=== PATIENT | male | born 1965 | race Caucasian/White ===

== ENCOUNTER 2019-10-01 22:07 | Emergency (ER) | payer OTHER, SELFPAY ==
--- NOTE | ~2019-10-01 | CT_ITS ---
EXAMINATION: CT abdomen pelvis w con DATE: 10/01/2019 22:55 INDICATION: Right upper quadrant abdominal pain TECHNIQUE: Computed tomography (CT) of the abdomen and pelvis was performed without intravenous contr ast. Automated exposure control and iterative reconstruction technique were employed. Exam dose: 149 7.68 mGy-cm total exam DLP. COMPARISON: None. FINDINGS: Cardiomegaly. No pericardial or pleural effusion. The lung bases are clear of infiltrate or consolidation. The gallbladder is present. Gallstones are not definitively excluded; consider gallbladder ultrasound as clinically appropriate. Hepatic steatosis. No hepatic, splenic or pancreatic or right adrenal space-occupying mass lesion is evident. There is approximately 1.5 cm left adrenal mass. No renal mass lesion or urinary tract calculus or hydroureteronephrosis is evident. The urinary bladd er, seminal vesicles and prostate gland are unremarkable. There is mild patchy increased density of the mesenteric fat and shotty nonenlarged mesenteric lymph nodes. There is mild colonic diverticulosis; no CT evidence of diverticulitis. No bowel obstruction or intra peritoneal free air. Diffuse idiopathic skeletal hyperostosis of the lower thoracic and upper lumbar spine. IMPRESSION: Cardiomegaly Hepatic steatosis 1.5 cm left adrenal mass Gallstones are not definitively excluded on this examination; consider gallbladder ultrasound as clin ically appropriate Diverticulosis of the colon; no CT evidence of diverticulitis. Reviewed, dictated and finalized at [facility]. Reviewed, dictated and finalized at location [facility]. S ANALYST IMPRESSION: Cardiomegaly Hepatic steatosis 1.5 cm left adrenal mass Gallstones are not definitively excluded on this examination; consider gallblad bg ultrasound as clinically appropriate Diverticulosis of the colon; no CT evidence of diverticulitis.
[2019-10-01 22:08] VITALS: BP 174/105; PULSE 74; RESP 20; TEMP 36.2; O2SAT 98
--- NOTE | 2019-10-01 22:14 | ED.ABDPAIN ---
HPI - Abdominal Pain General Chief Complaint: Abdominal Pain Stated Complaint: abd pain Time Seen by Provider: 10/01/19 22:12 Source: patient and RN notes reviewed Mode of arrival: other Limitations: no limitations History of Present Illness HPI narrative: Pt is a 54 y/o male who presents to the ED with c/o RUQ ABD pain that radiates to his back that began at 9 PM after driving home from a show. Pt states that he had a rib-eye for dinner. Pt took a hydrocodone at 9:30 PM, but with no relief of his sx. Pt denies any alleviating factors. Pt also reports nausea, but denies vomiting, diarrhea, and a fever. MD elicited complaint: abdominal pain Onset (ago): hour(s) Pain Consistency: constant Location: RUQ Relieving factors: nothing Associated symptoms: nausea Treatments prior to arrival: other (Hydrocodone) Related Data Home Medications Medication Instructions Recorded Confirmed aspirin 81 mg tablet,delayed 81 mg PO DAILY 07/10/19 08/22/19 release cetirizine 10 mg tablet 10 mg PO DAILY 08/22/19 08/22/19 Allergies Allergy/AdvReac Type Severity Reaction Status Date / Time No Known Allergies Allergy Uncoded 06/09/19 09:32 Review of Systems Review of Systems: All systems reviewed & are unremarkable except as noted in HPI and below Constitutional: Constitutional: Denies fever(s) Gastrointestinal: Gastrointestinal: Reports abdominal pain (RUQ), Denies diarrhea, Reports nausea and Denies vomiting PMFSH Past Medical History Medical History (Updated 10/02/19 @ 00:28 by Sherif Brock MD) Norman's palsy Controlled diabetes mellitus, without long-term current use of insulin Coronary artery disease without angina pectoris Encounter for prostate cancer screening Encounter for wellness examination in adult Essential (primary) hypertension Mixed hyperlipidemia Morbid obesity with BMI of 50.0-59.9, adult ESTHER on CPAP Right carpal tunnel syndrome Seasonal allergic rhinitis Surgical History Surgical History (Updated 10/01/19 @ 22:30 by Rosalie Smith) History of carpal tunnel release Hx of appendectomy Family History Family History (Updated 08/08/18 @ 09:39 by DOCTOR UNKNOWN) Other Depression Diabetes mellitus Family history of coronary artery disease Family history of malignant neoplasm of brain Hypertension Social History Social History Smoking status: Never smoker Alcohol intake: current Gender identity (if verbalized by the patient): Male Exam Narrative: Exam Narrative: GENERAL: Uncomfortable appearing, morbidly obese, in moderate distress. HEAD: Normocephalic, atraumatic. ENT: Mucous membranes moist. CHEST: Clear to auscultation. No respiratory distress. HEART: Tachycardic and regular. Normal peripheral pulses. ABDOMEN: Soft, tender to palpation right upper quadrant with guarding, morbidly obese. EXTREMITIES: Normal range of motion. No edema. SKIN: Warm, dry, no rash. NEURO: Alert and oriented x3. PSYCH: Normal mood and affect. Course Course Emergency Course: Pain resolved with morphine. Informed of results. Patient reports being told he had gallbladder sludge on ultrasound in [place] a while ago. Recommend follow-up with PCP for repeat ultrasound. May require referral to general surgery for cholecystectomy. Vital Signs Vital signs: Vital Signs Temperature 97.2 F L 10/01/19 22:08 Pulse Rate 74 10/01/19 22:08 Respiratory Rate 20 10/01/19 22:08 Blood Pressure 174/105 H 10/01/19 22:08 Pulse Oximetry 98 10/01/19 22:08 Temperature 97.2 F L 10/01/19 22:08 Pulse Rate 73 10/01/19 23:26 Respiratory Rate 18 10/01/19 23:26 Blood Pressure 167/79 H 10/01/19 23:26 Pulse Oximetry 95 10/01/19 23:26 MDM - Abdominal Pain Lab Data Result diagrams: 10/01/19 22:34 10/01/19 22:51 Labs: Lab Results 10/01/19 10/01/19 10/01/19 Range/Units 22:34 22:35 22:51 WBC 10.7 H (4.5-10.0) K/mm3 RBC 4.98 (4.6-6.20)
[2019-10-01] MEDS: SODIUM CHLORIDE 0.9% IV 1,000 ML 999 ML IV CONT (22:39)
[2019-10-01] MEDS: MORPHINE SULFATE 4 MG/ML INJ IV PUSH (22:39)
[2019-10-01] MEDS: ONDANSETRON INJ 4 MG/2 ML VIAL IV PUSH (22:39)
[2019-10-01 22:40] LABS: Basophils Percent Auto 0.4 % (0.2-1.2); Eosinophils Absolute Auto 0.2 K/mm3 (0-0.3); Eosinophils Percent Auto 1.6 % (0-4.4); Immature Granulocyte Absolute 0.04 K/mm3 (0.00-0.031); Immature Granulocyte Percent A 0.4 % (0-0.5); Lymphocytes Absolute Auto 3.06 K/mm3 (0.9-3.2); Lymphocytes Percent Auto 28.5 % (18.3-44.2); Mean Corpuscular HGB Conc 33.3 g/dl (32-36); Mean Corpuscular Hemoglobin 30.1 pg (26-34); Mean Corpuscular Volume 90.4 fl (80-100); Mean Platelet Volume 11.1 fl (7.4-10.4); Monocytes Absolute Auto 0.6 K/mm3 (0.1-0.6); Monocytes Percent Auto 5.2 % (2.6-8.5); Neutrophils Absolute Auto 6.9 K/mm3 (1.3-6.7); Neutrophils Percent Auto 63.9 % (45.5-73.1); Platelet Count Result 182 k/mm3 (150-375); Red Blood Count 4.98 M/mm3 (4.6-6.20); Red Cell Distribution Width 13.6 % (11.5-14.5); White Blood Count 10.7 K/mm3 (4.5-10.0)
[2019-10-01 22:53] LABS: Alanine Aminotransferase 36 U/L (4-50); Albumin Level 4.5 g/dL (3.5-5.1); Alkaline Phosphatase 78 U/L (38-126); Aspartate Amino Transferase 26 U/L (17-59); Bilirubin,Total 0.6 mg/dL (0.2-1.3); Blood Urea Nitrogen 18 mg/dL (9-20); Calcium 9.3 mg/dL (8.4-10.2); Carbon Dioxide 28 mmol/L (22-30); Chloride 97 mmol/L (98-107); Estimated Glomerular Filt Rate > 60; Glucose 120 mg/dL (75-110); Lipase 91 U/L (23-300); Sodium 140 mmol/L (137-145)
[2019-10-01 22:53] LABS: Blood Urea Nitrogen 18 mg/dL (8-26); Estimated Glomerular Filt Rate > 60
[2019-10-01 23:26] VITALS: BP 167/79; PULSE 73; RESP 18; O2SAT 95
[2019-10-02 00:34] VITALS: BP 151/65; PULSE 77; RESP 16; O2SAT 95
[2019-10-02 00:49] VITALS: BP 155/69; PULSE 70; RESP 16; TEMP 36.8; O2SAT 99
== END 2019-10-02 00:51 | disposition home or self-care (01) ==
PROVIDERS: Emergency Provider Emergency Medicine; PCP Family Medicine
DX: K80.50 Calculus of bile duct without cholangitis or cholecystitis without obstruction (principal); E11.9 Type 2 diabetes mellitus without complications; I25.10 Atherosclerotic heart disease of native coronary artery without angina pectoris; I10 Essential (primary) hypertension; E78.2 Mixed hyperlipidemia; E66.9 Obesity, unspecified; Z68.43 Body mass index [BMI] 50.0-59.9, adult; Z79.82 Long term (current) use of aspirin; E27.8 Other specified disorders of adrenal gland; K57.90 Diverticulosis of intestine, part unspecified, without perforation or abscess without bleeding
CPT/HCPCS: 36415; 74177; 80053; 83690; 85025; 96361; 96374; 96375; 99284; J2270; J2405; J7030; Q9967

== ENCOUNTER 2019-10-05 07:41 | Outpatient (CLI) | payer OTHER, SELFPAY ==
--- NOTE | ~2019-10-05 | NM_ITS ---
EXAMINATION: NM hepatobiliary w pharm EXAM DATE: 10/05/2019 10:06 INDICATION: Right upper quadrant abdominal pain. TECHNIQUE: 5 mCi Tc-99m mebrofenin (Choletec) was administered intravenously. Scintigraphic images o f the abdomen were obtained for one hour. At the 1 hour time point, 3.0 mcg sincalide (Kinevac) was a dministered by slow intravenous infusion, and imaging was continued for 30 minutes. Gallbladder eject ion fraction was calculated by the technologist. Correlation is made to CT abdomen pelvis 10/01/2019. FINDINGS: There is normal clearance of radiotracer from the blood pool. There is homogeneous tracer u ptake by the liver. Activity progresses to the gallbladder and bowel. The gallbladder ejection fract ion (GBEF) is 44 % (most patients with gallbladder dysfunction have GBEF < 35%, but there is overlap with the normal range of 10-90%). IMPRESSION: Gallbladder ejection fraction 44%, within normal range. Reviewed, dictated and finalized at location [facility]. PULLER
== END 2019-10-05 07:42 | disposition home or self-care (01) ==
PROVIDERS: PCP Family Medicine; Visit Provider Family Medicine
DX: K80.50 Calculus of bile duct without cholangitis or cholecystitis without obstruction (principal)
CPT/HCPCS: 78227; A9537; J2805

== ENCOUNTER 2020-04-06 22:16 | Emergency (ER) | payer OTHER, SELFPAY ==
[2020-04-06 22:19] VITALS: BP 195/98; PULSE 61; RESP 20; TEMP 36.5; O2SAT 100
[2020-04-06 22:40] LABS: Basophils Absolute Auto 0.1 K/mm3 (0.0-0.1); Basophils Percent Auto 0.5 % (0.2-1.2); Eosinophils Absolute Auto 0.2 K/mm3 (0-0.3); Eosinophils Percent Auto 2.2 % (0-4.4); Hemoglobin 15.3 g/dL (14.0-18.0); Immature Granulocyte Absolute 0.04 K/mm3 (0.00-0.031); Immature Granulocyte Percent A 0.4 % (0-0.5); Lymphocytes Absolute Auto 3.23 K/mm3 (0.9-3.2); Lymphocytes Percent Auto 31.7 % (18.3-44.2); Mean Corpuscular Hemoglobin 30.5 pg (26-34); Mean Corpuscular Volume 89.8 fl (80-100); Mean Platelet Volume 10.7 fl (7.4-10.4); Monocytes Absolute Auto 0.5 K/mm3 (0.1-0.6); Monocytes Percent Auto 4.9 % (2.6-8.5); Neutrophils Absolute Auto 6.1 K/mm3 (1.3-6.7); Neutrophils Percent Auto 60.3 % (45.5-73.1); Platelet Count Result 172 k/mm3 (150-375); Red Blood Count 5.01 M/mm3 (4.6-6.20); Red Cell Distribution Width 13.3 % (11.5-14.5); White Blood Count 10.2 K/mm3 (4.5-10.0)
[2020-04-06 22:51] LABS: Add Urine Microscopic? NO; Appearance Urine Clear (Clear); Bilirubin Urine Negative (Negative); Blood Urine Negative (Negative); Color Urine Yellow (Yellow); Glucose Urine UA Negative (Negative); Ketones Urine Negative (Negative); Leukocyte Esterase Ur Negative LEU/UL (Negative); Nitrate Urine Negative (Negative); Protein Urine Negative (Negative); Specific Grav Ur 1.026 (1.001-1.035); Urobilinogen Urine Negative mg/dL (<2.0)
[2020-04-06 22:56] LABS: Alanine Aminotransferase 55 U/L (4-50); Albumin Level 4.5 g/dL (3.5-5.1); Alkaline Phosphatase 63 U/L (38-126); Anion Gap 8 mmol/L (8-16); Aspartate Amino Transferase 37 U/L (17-59); Bilirubin,Total 0.4 mg/dL (0.2-1.3); Blood Urea Nitrogen 16 mg/dL (9-20); Calcium 8.7 mg/dL (8.4-10.2); Carbon Dioxide 28 mmol/L (22-30); Chloride 104 mmol/L (98-107); Estimated Glomerular Filt Rate > 60; Glucose 108 mg/dL (75-110); Lipase 122 U/L (23-300); Potassium 4.1 mmol/L (3.4-5.0); Sodium 140 mmol/L (137-145)
[2020-04-06] MEDS: MORPHINE SULFATE 4 MG/ML INJ IV PUSH (23:19)
[2020-04-06] MEDS: PROMETHAZINE HCL 25 MG/ML AMPUL 12.5 MG IV PUSH (23:20)
[2020-04-07 00:25] VITALS: BP 180/96; PULSE 59; RESP 20; TEMP 36.7; O2SAT 99
--- NOTE | 2020-04-07 00:42 | ED.ABDPAIN ---
HPI - Abdominal Pain General Chief Complaint: Abdominal Pain Stated Complaint: R ABD PAIN Time Seen by Provider: 04/06/20 22:39 History of Present Illness HPI narrative: Patient is a 55-year-old male who presents ER with right upper quadrant abdominal pain. Radiates around his back. Has history of gallbladder sludge with occasional biliary colic. This feels like the same symptoms he has had in the past. Occurred after eating some apple cider doughnuts. No fevers or chills. He is having some sweats as well as nausea and vomiting. No alleviating factors. Related Data Home Medications Medication Instructions Recorded Confirmed aspirin 81 mg tablet,delayed 81 mg PO DAILY 07/10/19 08/22/19 release cetirizine 10 mg tablet 10 mg PO DAILY 08/22/19 08/22/19 Allergies Allergy/AdvReac Type Severity Reaction Status Date / Time No Known Allergies Allergy Verified 04/06/20 22:21 Review of Systems Review of Systems: All systems reviewed & are unremarkable except as noted in HPI and below Constitutional: Constitutional: Denies chills, Denies fever(s) and Denies weakness ENT: Denies nasal congestion and Denies sore throat Cardiovascular: Cardiovascular: Denies chest pain and Denies rapid heart rate Respiratory: Respiratory: Denies cough and Denies dyspnea Gastrointestinal: Gastrointestinal: Reports abdominal pain, Denies diarrhea, Reports nausea and Reports vomiting PMFSH Past Medical History Medical History (Updated 04/07/20 @ 01:24 by Sherif Brock MD) Norman's palsy Biliary colic Controlled diabetes mellitus, without long-term current use of insulin Coronary artery disease without angina pectoris Cough Encounter for prostate cancer screening Encounter for wellness examination in adult Essential (primary) hypertension Fever Mixed hyperlipidemia Morbid obesity with BMI of 50.0-59.9, adult ESTHER on CPAP Right carpal tunnel syndrome Seasonal allergic rhinitis Shortness of breath Surgical History Surgical History (Updated 10/01/19 @ 22:30 by Rosalie Smith) History of carpal tunnel release Hx of appendectomy Family History Family History (Updated 08/08/18 @ 09:39 by DOCTOR UNKNOWN) Other Depression Diabetes mellitus Family history of coronary artery disease Family history of malignant neoplasm of brain Hypertension Social History Social History Smoking status: Never smoker Alcohol intake: current Gender identity (if verbalized by the patient): Male Exam Narrative: Exam Narrative: GENERAL: Well-appearing, obese, and in no acute distress. HEAD: Normocephalic, atraumatic. ENT: Mucous membranes moist. CHEST: Clear to auscultation. No respiratory distress. HEART: Regular rate and rhythm. Normal peripheral pulses. ABDOMEN: Soft, TTP RUQ w/o guarding, nondistended EXTREMITIES: Normal range of motion. No edema. SKIN: Warm, sweating, no rash. NEURO: Alert and oriented x3. Course Course Emergency Course: Pain resolved with morphine. Resting comfortably. Discharge home. Vital Signs Vital signs: Vital Signs Temperature 97.7 F 04/06/20 22:19 Pulse Rate 61 04/06/20 22:19 Respiratory Rate 20 04/06/20 22:19 Blood Pressure 195/98 H 04/06/20 22:19 Pulse Oximetry 100 04/06/20 22:19 Temperature 98.1 F 04/07/20 00:25 Pulse Rate 59 L 04/07/20 00:25 Respiratory Rate 20 04/07/20 00:25 Blood Pressure 180/96 H 04/07/20 00:25 Pulse Oximetry 99 04/07/20 00:25 MDM - Abdominal Pain Lab Data Result diagrams: 04/06/20 22:35 04/06/20 22:35 Labs: Lab Results 04/06/20 04/06/20 04/06/20 Range/Units 22:35 22:35 22:43 WBC 10.2 H (4.5-10.0) K/mm3 RBC 5.01 (4.6-6.20) M/mm3 Hgb 15.3 (14.0-18.0) g/dL Hct 45.0 (42.0-52.0) % MCV 89.8 (80-100) fl MCH 30.5 (26-34) pg MCHC 34.0 (32-36) g/dl RDW 13.3 (11.5-14.5) % Plt Count 172 (150-375) k/mm3 MPV 10.7 H (7.4-10.4) fl Immat
[2020-04-07 01:33] VITALS: BP 144/83; PULSE 73; RESP 18; O2SAT 98
== END 2020-04-07 01:35 | disposition home or self-care (01) ==
PROVIDERS: Emergency Provider Emergency Medicine; PCP Family Medicine
DX: K80.50 Calculus of bile duct without cholangitis or cholecystitis without obstruction (principal); Z79.82 Long term (current) use of aspirin; E11.9 Type 2 diabetes mellitus without complications; I25.10 Atherosclerotic heart disease of native coronary artery without angina pectoris; I10 Essential (primary) hypertension; E78.2 Mixed hyperlipidemia; E66.01 Morbid (severe) obesity due to excess calories; Z68.43 Body mass index [BMI] 50.0-59.9, adult; G47.33 Obstructive sleep apnea (adult) (pediatric)
CPT/HCPCS: 36415; 80053; 81003; 83690; 85025; 96374; 96375; 99284; J2270; J2550

== ENCOUNTER 2021-02-07 00:23 | Observation (INO) | payer OTHER, SELFPAY ==
[2021-02-07] VITALS (16 sets, daily range): BP systolic 108–188; BP diastolic 46–111; PULSE 58–85; RESP 18–22; TEMP 36–36.9; O2SAT 91–97; BMI 51.5
--- NOTE | 2021-02-07 | ECHO_ITS ---
Patient Info Name: Santos Grider Age: 56 years : 1965 Gender: Male Ht: 66 in Wt: 319 lbs BSA: 2.68 m2 HR: 72 bpm BP: 119 / 57 mmHg Heart Rhythm: Sinus Rhythm Technical Quality: Good Exam Date: 02/07/2021 10:05 AM Exam Location: [facility] Pulmonary Patient Status: Outpatient Admit Date: 02/07/2021 Staff Ordering Physician: Herminio Fierro MD Electric Organ Inspector And Repairer: Clint Vance, CRYSTAL, RT Attending Provider: Trevor Rossi MD Referring Physician: Sri LANG; Exam Type: CA echo doppler color flow Study Info Indications I11.0 - Hypertensive heart disease with heart failure Complete two-dimensional, color flow and Doppler transthoracic echocardiogram is performed. Strain analysis performed. Summary 1. Complete two-dimensional, color flow and Doppler transthoracic echocardiogram is performed. 2. Normal left ventricular size thickness and systolic function. 3. Grade 1 diastolic noncompliance. 4. Otherwise unremarkable echocardiogram. Left Ventricle Left ventricular chamber dimension is normal. Left ventricular systolic function is normal, estimated at 55-60%. The left ventricular diastolic function is grade I diastolic dysfunction. Right Ventricle Right ventricular chamber dimension is normal. Left Atria Left atrial chamber dimension is normal. Right Atria Right atrial chamber dimension is normal. Aortic Valve The aortic valve is normal. Pulmonic Valve The pulmonic valve is normal. Mitral Valve The mitral valve has normal leaflets. There is no mitral valve regurgitation. Tricuspid Valve The tricuspid valve leaflets are normal. Pericardium/Pleural The pericardium appears normal. Aorta The aortic root size at the sinus of Valsalva is normal. Left Ventricular Outflow Tract Name Value Normal LVOT 2D LVOT Diameter 2.0 cm LVOT Doppler LVOT Peak Gradient 5 mmHg LVOT Mean Gradient 3 mmHg LVOT VTI 22 cm LVOT VTI/AV VTI Ratio 0.7 LVOT Stroke Volume 67 ml LVOT CO 4.9 l/min LVOT CI 1.8 l/min/m2 Mitral Valve Name Value Normal MV Doppler MV Decel [place] 319 cm/s2 MV PHT 72 ms MV Area (PHT) 3.1 cm2 4.0-5.0 MV Diastolic Function MV E Peak Velocity 79 cm/s MV A Peak Velocity 88 cm/s MV E/A 0.9 MV Decel Time 248 ms MV Annular TDI MV E/
--- NOTE | ~2021-02-07 | XR_ITS ---
XR chest 1V portable 02/07/2021 00:59 Indication: Respiratory failure Procedure: AP portable chest Comparison: 05/12/2019 Findings: Cardiomegaly with mild interstitial edema. No pleural effusion or pneumothorax. No acute os seous abnormality. Impression: 1: Cardiomegaly with mild interstitial edema. Pneumonia less favored. Reviewed, dictated and finalized at location B. Impression: 1: Cardiomegaly with mild interstitial edema. Pneumonia less favored.
--- NOTE | 2021-02-07 00:27 | ECG_ITS ---
Measurements Intervals [place] Rate: 67 P: 1 W[place]: 153 QRS: -10 QRSD: 105 T: -10 QT: 404 QTc: 427 Interpretive Statements SINUS RHYTHM DELAYED PRECORDIAL R/S TRANSITION VOLTAGE CRITERIA FOR LVH BORDERLINE T WAVE ABNORMALITY- INFERIOR LEADS BASELINE ARTIFACT- I, III, AVL, V1 BORDERLINE ECG Electronically Signed On 02-07-2021 7:42:12 CDT by Max Garcia D.O.
--- NOTE | 2021-02-07 00:34 | ED.SOB ---
HPI - SOB/Dyspnea General Chief Complaint: Shortness of Breath/Dyspnea Stated Complaint: sob, coughing up blood since 1130 Time Seen by Provider: 02/07/21 00:27 History of Present Illness HPI Narrative: 56 yo male w/ h/o htn, DM presents to the ED for SOB. He reports that around 11:30 PM yesterday he started coughing up pink frothy stuff and he has had progressive SOB since that time. No chest pain. He has never had this happen before. Related Data Home Medications Medication Instructions Recorded Confirmed aspirin 81 mg tablet,delayed 81 mg PO DAILY 07/10/19 02/07/21 release cetirizine 10 mg tablet 10 mg PO DAILY 12/17/20 02/07/21 Allergies Allergy/AdvReac Type Severity Reaction Status Date / Time No Known Allergies Allergy Verified 02/07/21 03:20 Review of Systems Review of Systems: All systems reviewed & are unremarkable except as noted in HPI and below Constitutional: Constitutional: Denies chills and Denies fever(s) ENT: Denies sore throat Cardiovascular: Cardiovascular: Denies chest pain Respiratory: Respiratory: Reports cough and Reports dyspnea Gastrointestinal: Gastrointestinal: Denies abdominal pain and Denies nausea Neurologic: Denies dizziness and Denies weakness PMFSH Past Medical History Medical History Norman's palsy Biliary colic Controlled diabetes mellitus, without long-term current use of insulin Coronary artery disease without angina pectoris Cough Encounter for prostate cancer screening Encounter for wellness examination in adult Essential (primary) hypertension Fever Mixed hyperlipidemia Morbid obesity with BMI of 50.0-59.9, adult ESTHER on CPAP Right carpal tunnel syndrome Seasonal allergic rhinitis Shortness of breath Surgical History Surgical History History of carpal tunnel release History of cholecystectomy (~2019) Hx of appendectomy Family History Family History Daughter Depression Father Family history of coronary artery disease Hypertension Acute myocardial infarction Cerebrovascular accident Social History Social History Smoking status: Never smoker Alcohol intake: current Drinks per week: 7 Substance use: never Gender identity (if verbalized by the patient): Male Spiritual care concerns: No Exam Const: General: alert and ill appearing Nutritional Appearance: obese morbidly obese Orientation/consciousness: patient oriented x3 HENMT: Head: normal to inspection Neck: Neck: normal visual inspection Chest: Chest palpation & inspection: normal inspection of the chest Resp: Effort & Inspection: tachypneic Auscultation: crackles Cardio: Rate: tachycardic Rhythm: regular rhythm GI: GI Palp: Yes Soft to palpation and No Tenderness to palpation present (GI) Skin: General skin exam: normal color Neuro: General: patient oriented x3, moves all extremities, no focal motor deficits and CN's II-XI intact bilaterally Speech: normal speech Extrem: General: normal to inspection Course Vital Signs Vital signs: Vital Signs Pulse Rate 78 02/07/21 00:20 Respiratory Rate 22 H 02/07/21 00:20 Blood Pressure 188/111 H 02/07/21 00:20 Pulse Oximetry 96 02/07/21 00:20 Temperature 36.9 C 02/07/21 03:20 Pulse Rate 72 02/07/21 03:20 Respiratory Rate 18 02/07/21 03:20 Blood Pressure 119/57 L 02/07/21 03:20 Pulse Oximetry 94 02/07/21 03:44 MDM - SOB/Dyspnea MDM Narrative Medical decision making narrative: He appears to have developed flash pulmonary edema Differential Diagnosis Differential diagnosis: Likely congestive heart failure and community acquired pneumonia Medical Records Attestation: I reviewed the patient's medical records. Lab Data Attestation: I reviewed the patient's lab
[2021-02-07] MEDS: LABETALOL HCL INJ 100 MG/20 ML VIAL 20 MG IV PUSH (00:39)
[2021-02-07] MEDS: FUROSEMIDE INJ 40 MG/4 ML VIAL IV PUSH ×3 (00:40→20:11)
[2021-02-07] MEDS: NITROGLYCERIN OINTMENT 1 INCH DOSE TRANSDERM ×5 (00:41→23:58)
[2021-02-07 01:05] LABS: Basophils Percent Auto 0.2 % (0.2-1.2); Eosinophils Absolute Auto 0.2 K/mm3 (0-0.3); Eosinophils Percent Auto 2.1 % (0-4.4); Hematocrit 42.1 % (42.0-52.0); Hemoglobin 14.1 g/dL (14.0-18.0); Immature Granulocyte Absolute 0.04 K/mm3 (0.00-0.031); Immature Granulocyte Percent A 0.5 % (0-0.5); Immature Platelet Fraction Pct 4.3 % (0.9-11.2); Lymphocytes Percent Auto 24.8 % (18.3-44.2); Mean Corpuscular HGB Conc 33.5 g/dl (32-36); Mean Corpuscular Hemoglobin 30.5 pg (26-34); Mean Corpuscular Volume 90.9 fl (80-100); Mean Platelet Volume 10.8 fl (7.4-10.4); Monocytes Absolute Auto 0.4 K/mm3 (0.1-0.6); Monocytes Percent Auto 4.4 % (2.6-8.5); Platelet Count Result 148 k/mm3 (150-375); Red Blood Count 4.63 M/mm3 (4.6-6.20); Red Cell Distribution Width 13.9 % (11.5-14.5); White Blood Count 8.9 K/mm3 (4.5-10.0)
[2021-02-07 01:12] LABS: Anion Gap 7 mmol/L (8-16); Blood Urea Nitrogen 21 mg/dL (9-20); Calcium 8.5 mg/dL (8.4-10.2); Carbon Dioxide 26 mmol/L (22-30); Chloride 108 mmol/L (98-107); Estimated CRCL calculation 125 ml/min; Estimated Glomerular Filt Rate > 60; Glucose 120 mg/dL (75-110); INR 0.9; Potassium 3.6 mmol/L (3.4-5.0); Prothrombin Time 12.9 Seconds (11.1-14.7); Sodium 141 mmol/L (137-145)
[2021-02-07 01:13] LABS: Partial Thromboplastin Time 26.6 SECONDS (22.3-36.8)
[2021-02-07 01:24] LABS: NT Pro B Type Natriuretic Pept 204 pg/mL (5-100); Troponin I < 0.012 ng/mL (0.000-0.034)
--- NOTE | 2021-02-07 03:00 | PM.IMHP ---
H&P: HPI History of Present Illness Date/Time: 02/07/21 03:00 Chief Complaint: shortness of breath Narrative: This is a 56-year-old male with past medical history significant for morbid obesity, dyslipidemia, hypertension. PATIENT PRESENTED TO THE EMERGENCY ROOM DUE TO SHORTNESS OF BREATH IS STATES THAT A CAME ALL OF A SUDDEN ON HIM WHILE HE WAS JUST LAYING IN BED AND GETTING READY TO GO TO SLEEP FELT THAT HE WAS HARD TO CATCH HIS BREATH. PATIENT DENIES ANY CHEST PAIN HE HAD COUGH WITH PRODUCTIVE FOAMY PINK SPUTUM NO DIZZINESS NO NEAR SYNCOPE NO SYNCOPE NO PND NO ORTHOPNEA NO LEG SWELLING HE HAS BEEN IN HIS USUAL STATE OF HEALTH UP UNTIL THIS EPISODE, NO ABDOMINAL NO FEVERS NO RIGORS NO CHILLS. PRELIMINARY WORKUP WAS SIGNIFICANT FOR CHEST X-RAY WITH PULMONARY EDEMA AND ELEVATED BLOOD PRESSURE AT THE TIME OF MY VISIT PATIENT DENIED ANY DISCOMFORT AND STATED THAT HE WAS FEELING MUCH BETTER HE RECEIVED LASIX, LABETALOL AND NITRO PATCH. DECISION HAS BEEN MADE TO PLACE THE PATIENT IN OBSERVATION FOR FURTHER MANAGEMENT AND EVALUATION. Review of Systems Review of Systems: Narrative: SHORTNESS OF BREATH Constitutional: Constitutional: Denies chills, Denies fatigue, Denies fever(s), Denies lethargy, Denies night sweats and Denies weakness Eyes: Eyes: Denies change in vision and Denies diplopia ENT: Denies nasal congestion, Denies nasal discharge and Denies nasal obstruction Cardiovascular: Cardiovascular: Denies chest pain, Denies irregular heart rhythm, Denies leg edema, Denies lightheadedness, Denies radiating jaw, neck or arm pain, Denies palpitations, Denies dyspnea on exertion, Reports orthopnea and Denies paroxysmal nocturnal dyspnea Respiratory: Respiratory: Reports cough and Reports excessive phlegm production Comments: FOAMY PINKISH SPUTUM Gastrointestinal: Gastrointestinal: Denies abdominal pain, Denies dyspepsia, Denies nausea and Denies vomiting Genitourinary: Genitourinary: Reports no additional male genitourinary complaints Musculoskeletal: Musculoskeletal: Reports no additional musculoskeletal complaints Integumentary/Breasts: Skin/Breast: Reports system reviewed and no additional complaints, except as docu Neurologic: Reports system reviewed and no additional complaints, except as documented Psychiatric: Psychiatric: Reports no additional psychiatric complaints Endocrine: Endocrine: Reports no additional endocrine complaints Hematologic/Lymphatic: Hematologic/Lymphatic: Reports no additional hematologic/lymphatic complaints Allergic/Immunologic: Allergic/Immunologic: Reports no additional allergic/immunologic complaints [facility] Past Medical History Medical History (Updated 02/07/21 @ 03:12 by Herminio Fierro MD) Norman's palsy Biliary colic Controlled diabetes mellitus, without long-term current use of insulin Coronary artery disease without angina pectoris Cough Encounter for prostate cancer screening Encounter for wellness examination in adult Essential (primary) hypertension Fever Mixed hyperlipidemia Morbid obesity with BMI of 50.0-59.9, adult ESTHER on CPAP Right carpal tunnel syndrome Seasonal allergic rhinitis Shortness of breath Surgical History Surgical History (Updated 06/18/20 @ 13:56 by Estefany Adkins MA) History of carpal tunnel release History of cholecystectomy (~2019) Hx of appendectomy Family History Family History (Updated 08/08/18 @ 09:39 by DOCTOR UNKNOWN) Other Depression Diabetes mellitus Family history of coronary artery disease Family history of malignant neoplasm of brain Hypertension Social History Social History Smoking status: Never smoker Alcohol intake: current Gender identity (if verbalized by the patient): Male Meds Home Medications and Allergies Home Medications Medication Instructions Recorded Confirmed Type aspirin 81 mg tablet,delayed 81 mg PO DAILY 07/10/19 12/17/20 Histor
--- NOTE | 2021-02-07 03:18 | PC.NURSE ---
This patient, Santos Grider, was admitted to IMU Room 207-01 on 02/07/21 at 0310. Patient/family oriented to hospital policies and general routines including ID bracelet, bed and alarms, visiting hours, pain management, procedures, bathroom and other care routines, personal items, smoking policy, room service/diet, and visiting hours. Information on how to activate the Rapid Response Team has been discussed. Patient/Family are encouraged to report perceived risks to care and to ask questions if they do not understand what they are told or what they should do.
[2021-02-07] MEDS: lisinopriL 20 MG TABLET 40 MG PO (08:25)
[2021-02-07] MEDS: METOPROLOL SUCCINATE EXT REL 50 MG TABCR PO (08:25)
[2021-02-07 08:45] LABS: Glucose Point of Care 130 mg/dl (65-105)
--- NOTE | 2021-02-07 10:52 | PM.IMPN ---
Progress Note: A&P Assessment and Plan (1) Hypertensive emergency: Code(s): I16.1 - Hypertensive emergency Status: Acute Assessment and Plan: PLACE IN OBSERVATION IN TELEMETRY UNIT RESTART HOME MEDS HYDRALAZINE IV P.R.N. ECHOCARDIOGRAM IN A.M. SUPPORTIVE CARE CONTINUE TO MONITOR Consult cardiology (2) Acute cardiogenic pulmonary edema: Code(s): I50.1 - Left ventricular failure, unspecified Status: Acute Assessment and Plan: Improving gradually (3) Morbid obesity with BMI of 50.0-59.9, adult: Code(s): E66.01 - Morbid (severe) obesity due to excess calories; Z68.43 - Body mass index [BMI] 50.0-59.9, adult Status: Acute Assessment and Plan: LIFESTYLE AND DIET MODIFICATIONS (4) Controlled diabetes mellitus, without long-term current use of insulin: Code(s): E11.9 - Type 2 diabetes mellitus without complications Status: Acute Assessment and Plan: CARB CONSISTENT DIET (5) ESTHER on CPAP: Code(s): G47.33 - Obstructive sleep apnea (adult) (pediatric); Z99.89 - Dependence on other enabling machines and devices Status: Acute Assessment and Plan: CONTINUE CPAP Subjective Date/time seen: 02/07/21 10:52 Interval history: Shortness of breath and chest discomfort are much better, patient is resting comfortably no active complaints at this time. Exam Const: General: cooperative and no acute distress HENMT: Head: normal to inspection Eyes: General: appearance normal, both eyes and all related structures Neck: Neck: normal visual inspection Chest: Chest palpation & inspection: normal inspection of the chest Resp: Effort & Inspection: normal respiratory effort Cardio: Jugular venous distension: no JVD Rate: regular rate GI: Inspection: normal to inspection and non-distended Objective Data Vital Signs Vital Signs: Vital Signs - 24 hr 02/07/21 00:20 02/07/21 02:41 02/07/21 03:20 Temperature 98.4 F Pulse Rate 78 71 72 Respiratory Rate 22 H 18 18 Blood Pressure 188/111 H 134/79 119/57 L Pulse Oximetry 96 97 92 02/07/21 03:44 02/07/21 04:00 02/07/21 06:00 Temperature Pulse Rate 76 64 Respiratory Rate Blood Pressure Pulse Oximetry 94 02/07/21 08:00 02/07/21 10:00 Temperature 97.9 F Pulse Rate 70 71 Respiratory Rate 22 H Blood Pressure 125/51 L Pulse Oximetry 93 Intake/Output Intake/Output: Intake & Output 02/04/21 02/05/21 02/06/21 02/07/21 23:59 23:59 23:59 23:59 Output Total 1205 Balance -1205 Meds/Results Medications: Active Medications Generic Name Dose Route Start Last Admin Trade Name Freq PRN Reason Stop Dose Admin Furosemide 40 mg 02/07/21 09:00 02/07/21 08:25 Furosemide Inj 40 Mg/4 Ml Vial IV PUSH 40 mg Q12HR VIDA Administration Hydralazine HCl 10 mg 02/07/21 02:56 Hydralazine Hcl 20 Mg/Ml Vial IV PUSH Q8H PRN SBP > 180 Insulin Aspart 7 units 02/07/21 08:00 02/07/21 08:22 Insulin Aspart (*Bkc) 100 Units/Ml 0.05 units/kg (7 units) Not Given SUB-Q TIDWM [facility] Lisinopril 40 mg 02/07/21 09:00 02/07/21 08:25 Lisinopril 20 Mg Tablet PO 40 mg QAM VIDA Administration Metoprolol Succinate 50 mg 02/07/21 09:00 02/07/21 08:25 Metoprolol Succinate Ext Rel 50 Mg Tabcr PO 50 mg QAM VIDA Administration Nitroglycerin 1 inch 02/07/21 06:00 02/07/21 05:00 Nitroglycerin Ointment 1 Inch Dose TRANSDERM 1 inch Q6HR VIDA Administration Radiology Results: ITS Impressions Chest X-Ray 02/07/21 08:02 Impression: 1: Cardiomegaly with mild interstitial edema. Pneumonia less favored. Labs Labs: Laboratory Results - last 24 hr 02/07/21 02/07/21 02/07/21 00:54 00:54 00:54 WBC 8.9 RBC 4.63 Hgb 14.1 Hct 42.1 MCV 90.9 MCH 30.5 MCHC 33.5 RDW 13.9 Plt Count 148 L MPV 10.8 H Immature Gran % (Auto) 0.5 Neut % (Auto) 68.0 Lymph % (Auto) 24
--- NOTE | 2021-02-07 11:28 | PM.CNCAR ---
Assessment and Plan Additional Plan This is a 56-year-old man with chronic hypertension with no evidence of significant coronary disease angiographically a couple of years ago presenting with severe abrupt respiratory extremis picture of pulmonary edema and feeling much better following treatment with intravenous furosemide and oxygen as well as nitrates. I believe his high blood pressure in the emergency room was related to elevated sympathetic tone because of his respiratory extremis. He does have a systolic murmur on physical exam that is somewhat concerning for MR. He did not have any significant valvulopathy in 2019 when he was previously evaluated. At that time he also did not have any coronary artery disease to speak of. For now I would continue the IV furosemide lisinopril and metoprolol. He still has some pulmonary crackles and would probably benefit from at least another couple of doses of IV furosemide. Further recommendations will be forthcoming at review of his echocardiogram. Timbo Choudhury MD [facility] History of Present Illness History of Present Illness Consult date/time: 02/07/21 11:28 Reason For Visit: Flash pulmonary edema Narrative: This is a 56-year-old man I am seeing at the request of the hospitalist the stated reason for the consult is hypertensive emergency. Sounds like the patient presented last evening with acute severe shortness of breath with respiratory extremis and was found to be in evidence of some pulmonary edema in the emergency room. He was in his usual state of relatively good health when states he went to bed last night and shortly after laying down going to bed he started to notice some shortness of breath. His started to notice that he was doing some wheezing over the course of about just 5-10 minutes he became severely short of breath and started coughing up some blood-tinged sputum and was in severe respiratory distress. An ambulance was called he was transported to the emergency room here where he was by exam and x-ray felt to be in pulmonary edema. He was given nitroglycerin furosemide an oxygen and rapidly improved and was admitted to the IMU for further evaluation and management. He is asymptomatic now and let resting comfortably in bed and has no complaints. The patient did not have any chest pain pressure or heaviness at the time of this event. He in retrospect says that over the last several months he has had a couple of episodes like this that were very mild that did not result in him having much concern. He was treated with intravenous furosemide he normally takes lisinopril and metoprolol for hypertension those medications have been continued. He was very hypertensive in the emergency room when he was struggling to breathe. He did not notice any accumulating lower extremity edema prior to this. The patient is not known to have any obvious cardiac problems in fact I did see this patient in consultation 2 years ago in the fall of 2018 when he was hospitalized with some atypical sounding chest pain in the chest pain center. A stress test was done with modest abnormalities which triggered a coronary angiogram to be done which was negative for any significant coronary disease he had some modest coronary plaquing but certainly no flow-limiting disease and did not feel like further cardiac follow-up was necessary. He has lost some weight during the pandemic with exercise he still is morbidly obese however with a BMI of 51. He a nydia he carries the diagnosis of obstructive sleep apnea but is very compliant with CPAP stating that that is effectively treating his apnea. An echocardiogram was ordered following admission which has been done but not yet read so I do not have those findings to include in this note. His electrocardiogram on presentation is normal his biomarkers are normal. Review of Systems Constitutional: Constitutional: Reports no additional constitutional complaints Eyes: Eyes: Reports no
[2021-02-07 12:59] LABS: Glucose Point of Care 105 mg/dl (65-105)
[2021-02-07] MEDS: ENOXAPARIN 40 MG/0.4 ML SYRINGE SUB-Q (13:39)
[2021-02-07 17:19] LABS: Glucose Point of Care 104 mg/dl (65-105)
[2021-02-07 22:05] LABS: Glucose Point of Care 110 mg/dl (65-105)
[2021-02-08] VITALS (15 sets, daily range): BP systolic 115–154; BP diastolic 54–87; PULSE 57–75; RESP 18–22; TEMP 36.1–36.7; O2SAT 91–97
[2021-02-08 05:48] LABS: Basophils Percent Auto 0.4 % (0.2-1.2); Eosinophils Absolute Auto 0.2 K/mm3 (0-0.3); Eosinophils Percent Auto 2.1 % (0-4.4); Hematocrit 41.1 % (42.0-52.0); Hemoglobin 13.7 g/dL (14.0-18.0); Immature Granulocyte Absolute 0.02 K/mm3 (0.00-0.031); Immature Granulocyte Percent A 0.2 % (0-0.5); Immature Platelet Fraction Pct 5.9 % (0.9-11.2); Lymphocytes Absolute Auto 2.23 K/mm3 (0.9-3.2); Lymphocytes Percent Auto 26.1 % (18.3-44.2); Mean Corpuscular HGB Conc 33.3 g/dl (32-36); Mean Corpuscular Hemoglobin 30.6 pg (26-34); Mean Corpuscular Volume 91.9 fl (80-100); Mean Platelet Volume 11.4 fl (7.4-10.4); Monocytes Absolute Auto 0.6 K/mm3 (0.1-0.6); Monocytes Percent Auto 6.9 % (2.6-8.5); Neutrophils Absolute Auto 5.5 K/mm3 (1.3-6.7); Neutrophils Percent Auto 64.3 % (45.5-73.1); Platelet Count Result 142 k/mm3 (150-375); Red Blood Count 4.47 M/mm3 (4.6-6.20); Red Cell Distribution Width 14.2 % (11.5-14.5); White Blood Count 8.5 K/mm3 (4.5-10.0)
[2021-02-08 06:00] LABS: Anion Gap 6 mmol/L (8-16); Blood Urea Nitrogen 16 mg/dL (9-20); Calcium 8.7 mg/dL (8.4-10.2); Carbon Dioxide 28 mmol/L (22-30); Chloride 104 mmol/L (98-107); Estimated CRCL calculation 141 ml/min; Estimated Glomerular Filt Rate > 60; Glucose 107 mg/dL (75-110); Potassium 3.4 mmol/L (3.4-5.0); Sodium 138 mmol/L (137-145)
[2021-02-08] MEDS: NITROGLYCERIN OINTMENT 1 INCH DOSE TRANSDERM ×2 (06:29→12:44)
[2021-02-08] MEDS: METOPROLOL SUCCINATE EXT REL 50 MG TABCR PO (08:18)
[2021-02-08] MEDS: lisinopriL 20 MG TABLET 40 MG PO (08:19)
[2021-02-08] MEDS: FUROSEMIDE INJ 40 MG/4 ML VIAL IV PUSH ×2 (08:19→20:16)
[2021-02-08] MEDS: ENOXAPARIN 40 MG/0.4 ML SYRINGE SUB-Q (08:19)
[2021-02-08 08:21] LABS: Glucose Point of Care 116 mg/dl (65-105)
[2021-02-08] MEDS: ATORVASTATIN 20 MG TABLET PO (09:52)
[2021-02-08 11:48] LABS: Glucose Point of Care 122 mg/dl (65-105)
--- NOTE | 2021-02-08 12:27 | PM.IMPN ---
Progress Note: A&P Assessment and Plan (1) Hypertensive emergency: Code(s): I16.1 - Hypertensive emergency Status: Acute Assessment and Plan: IV Lasix RESTART HOME MEDS HYDRALAZINE IV P.R.N. ECHOCARDIOGRAM SUPPORTIVE CARE CONTINUE TO MONITOR Consult cardiology ischemic evaluation per Cardiology (2) Acute cardiogenic pulmonary edema: Code(s): I50.1 - Left ventricular failure, unspecified Status: Acute Assessment and Plan: Improving gradually, IV Lasix (3) Morbid obesity with BMI of 50.0-59.9, adult: Code(s): E66.01 - Morbid (severe) obesity due to excess calories; Z68.43 - Body mass index [BMI] 50.0-59.9, adult Status: Acute Assessment and Plan: LIFESTYLE AND DIET MODIFICATIONS (4) Controlled diabetes mellitus, without long-term current use of insulin: Code(s): E11.9 - Type 2 diabetes mellitus without complications Status: Acute Assessment and Plan: CARB CONSISTENT DIET monitor blood sugar (5) ESTHER on CPAP: Code(s): G47.33 - Obstructive sleep apnea (adult) (pediatric); Z99.89 - Dependence on other enabling machines and devices Status: Acute Assessment and Plan: CONTINUE CPAP Subjective Date/time seen: 02/08/21 12:27 Interval history: shortness of breath is better, patient denies chest pain at this time. no active complaints Exam Const: General: cooperative and no acute distress HENMT: Head: normal to inspection Eyes: General: appearance normal, both eyes and all related structures Neck: Neck: normal visual inspection Chest: Chest palpation & inspection: normal inspection of the chest Resp: Effort & Inspection: normal respiratory effort Cardio: Jugular venous distension: no JVD Rate: regular rate GI: Inspection: normal to inspection and non-distended Objective Data Vital Signs Vital Signs: Vital Signs - 24 hr 02/07/21 14:00 02/07/21 16:00 02/07/21 18:00 Temperature 97.6 F Pulse Rate 77 85 68 Respiratory Rate 18 Blood Pressure 133/50 L Pulse Oximetry 93 02/07/21 20:00 02/07/21 23:10 02/07/21 23:28 Temperature 96.8 F L 97.4 F L Pulse Rate 68 67 66 Respiratory Rate 22 H 18 22 H Blood Pressure 145/72 H 128/58 L Pulse Oximetry 91 94 91 02/07/21 23:41 02/08/21 00:00 02/08/21 03:24 Temperature 97 F L Pulse Rate 72 57 L Respiratory Rate 22 H Blood Pressure 115/54 L Pulse Oximetry 91 95 02/08/21 04:00 02/08/21 08:00 02/08/21 08:18 Temperature 97.6 F Pulse Rate 66 65 65 Respiratory Rate 20 Blood Pressure 148/87 H Pulse Oximetry 91 96 02/08/21 10:00 02/08/21 11:42 Temperature 97.4 F L Pulse Rate 73 68 Respiratory Rate 18 Blood Pressure 152/86 H Pulse Oximetry 97 Intake/Output Intake/Output: Intake & Output 02/05/21 02/06/21 02/07/21 02/08/21 23:59 23:59 23:59 23:59 Intake Total 1270 1990 Output Total 8208 5488 Balance -2798 -011 Meds/Results Medications: Active Medications Generic Name Dose Route Start Last Admin Trade Name Freq PRN Reason Stop Dose Admin Atorvastatin Calcium 20 mg 02/08/21 09:00 02/08/21 09:52 Atorvastatin 20 Mg Tablet PO 20 mg DAILY VIDA Administration Enoxaparin Sodium 40 mg 02/07/21 11:00 02/08/21 08:19 Enoxaparin 40 Mg/0.4 Ml Syringe SUB-Q 40 mg DAILY VIDA Administration Furosemide 40 mg 02/07/21 09:00 02/08/21 08:19 Furosemide Inj 40 Mg/4 Ml Vial IV PUSH 40 mg Q12HR VIDA Administration Hydralazine HCl 10 mg 02/07/21 02:56 Hydralazine Hcl 20 Mg/Ml Vial IV PUSH Q8H PRN SBP > 180 Insulin Aspart 7 units 02/07/21 08:00 02/08/21 08:19 Insulin Aspart (*Bkc) 100 Units/Ml 0.05 units/kg (7 units) Not Given SUB-Q TIDWM VIDA Lisinopril 40 mg 02/07/21 09:00 02/08/21 08:19 Lisinopril 20 Mg Tablet PO 40 mg QAM VIDA Administration Metoprolol Succinate 50 mg 02/07/21 09:00 02/08/21 08:18 Metoprolol Succinate Ext Rel 50 M
[2021-02-08] MEDS: POTASSIUM CHLORIDE 20 MEQ TABLET 40 MEQ PO (15:03)
[2021-02-08] MEDS: hydroCHLOROthiazide 12.5 MG CAPSULE PO (15:04)
[2021-02-08 15:10] LABS: Troponin I < 0.012 ng/mL (0.000-0.034)
[2021-02-08 16:21] LABS: Glucose Point of Care 116 mg/dl (65-105)
--- NOTE | 2021-02-08 16:51 | PM.PNCARD ---
Progress Note: A&P Assessment and Plan (1) Hypertensive emergency: Code(s): I16.1 - Hypertensive emergency Status: Acute Assessment and Plan: BP elevated presentation secondary to sodium indiscretion with significant weight gain prior to admission consistent with acute heart failure with preserved ejection fraction and flash pulmonary edema. Serial troponins negative. No evidence for myocardial ischemia. 2D echo preserved EF, no significant valve pathology. Discussed ischemic workup either noninvasive versus invasive. Serial troponins negative no evidence for acute myocardial ischemia or infarction by EKG or objective laboratory evaluation. As such, we will focus on BP control which has worsened today. Discontinue nitroglycerin paste, add hydrochlorothiazide 12.5 mg daily. Give potassium 40 mEq p.o. x1. I would not recommend discharge today as he requires improved blood pressure control. transition to oral diuretic tomorrow as appropriate. Consider noninvasive ischemic evaluation as an outpatient in the next 1-2 weeks with close observation of blood pressure. Monitor tolerance with adjustment in medical therapy. Discussed importance of lifestyle, medications and close observation of blood pressure, weight sodium intake and communication. Patient and his at bedside verbalized understanding and agreed with plan of care. Patient had been in quite well in general with exception of the past couple of weeks. If blood pressure consistently less than 150 mm Hg discharge reasonable tomorrow if patient is otherwise asymptomatic. 34 minutes spent in the care of this patient at bedside in discussions with the patient, his , chart review, and medical decision making. (2) Flash pulmonary edema: Code(s): J81.0 - Acute pulmonary edema Status: Acute Assessment and Plan: Resolved. Transition to oral Lasix tomorrow. (3) ESTHER on CPAP: Code(s): G47.33 - Obstructive sleep apnea (adult) (pediatric); Z99.89 - Dependence on other enabling machines and devices Status: Acute Assessment and Plan: Compliance. Counseled on the importance. He understands. (4) Morbid obesity with BMI of 50.0-59.9, adult: Code(s): E66.01 - Morbid (severe) obesity due to excess calories; Z68.43 - Body mass index [BMI] 50.0-59.9, adult Status: Acute Assessment and Plan: Continue lifestyle modification, weight loss, reduction caloric intake and increased calorie expenditure counseling performed. (5) Coronary artery disease without angina pectoris: Code(s): I25.10 - Atherosclerotic heart disease of [place] coronary artery without angina pectoris Status: Acute Assessment and Plan: Asymptomatic, mild nonobstructive disease on [facility] 2019, negative serial troponins no acute ischemic changes on EKG presentation. Check EKG in a.m.. (6) Mixed hyperlipidemia: Code(s): E78.2 - Mixed hyperlipidemia Status: Acute Assessment and Plan: Statin therapy. Goal LDL less than 70. (7) Controlled diabetes mellitus, without long-term current use of insulin: Code(s): E11.9 - Type 2 diabetes mellitus without complications Status: Acute Assessment and Plan: Defer to primary service. Subjective Date/time seen: date of service:02/08/21 16:51 Follow-up for flash pulmonary edema, hypertensive urgency feeling much better. Diuresing well. Denies significant shortness of breath, dizziness or chest pain. Edema improving. Extensive discussion held at bedside with patient and his . Patient claims compliance with medications, CPAP. He states over the past year he has lost 40 lb but admits after vacation he has gained 10-15 lb in 1-2 weeks. He was not following his diet but was compliant with medications. He has not checked his blood pressure since November which generally ranged in the 140s or less sometimes up to the 160s. Review of Systems Re
[2021-02-08 20:07] LABS: Glucose Point of Care 128 mg/dl (65-105)
[2021-02-09] VITALS (10 sets, daily range): BP systolic 124–146; BP diastolic 72–84; PULSE 59–72; RESP 20–22; TEMP 36.3–36.5; O2SAT 96–97
[2021-02-09 05:45] LABS: Mean Corpuscular HGB Conc 32.6 g/dl (32-36); Mean Corpuscular Hemoglobin 30.1 pg (26-34); Mean Corpuscular Volume 92.2 fl (80-100); Mean Platelet Volume 11.3 fl (7.4-10.4); Platelet Count Result 154 k/mm3 (150-375); Red Blood Count 4.99 M/mm3 (4.6-6.20); Red Cell Distribution Width 14.1 % (11.5-14.5); White Blood Count 10.2 K/mm3 (4.5-10.0)
[2021-02-09 05:52] LABS: Alanine Aminotransferase 37 U/L (4-50); Albumin Level 4.5 g/dL (3.5-5.1); Alkaline Phosphatase 55 U/L (38-126); Anion Gap 10 mmol/L (8-16); Aspartate Amino Transferase 28 U/L (17-59); Bilirubin,Total 0.9 mg/dL (0.2-1.3); Blood Urea Nitrogen 18 mg/dL (9-20); Calcium 9.2 mg/dL (8.4-10.2); Carbon Dioxide 27 mmol/L (22-30); Chloride 103 mmol/L (98-107); Estimated CRCL calculation 125 ml/min; Estimated Glomerular Filt Rate > 60; Glucose 109 mg/dL (75-110); Magnesium 2.2 mg/dL (1.6-2.3); Potassium 3.5 mmol/L (3.4-5.0); Sodium 140 mmol/L (137-145)
--- NOTE | 2021-02-09 07:00 | ECG_ITS ---
Measurements Intervals [place] Rate: 61 P: -2 FL: 178 QRS: -18 QRSD: 104 T: -9 QT: 420 QTc: 423 Interpretive Statements SINUS RHYTHM VOLTAGE CRITERIA FOR LVH BORDERLINE R WAVE PROGRESSION, ANTERIOR LEADS BORDERLINE T WAVE ABNORMALITY- INFERIOR LEADS BORDERLINE ECG Electronically Signed On 02-09-2021 8:43:42 CDT by Max Garcia D.O.
[2021-02-09 07:11] LABS: Glucose Point of Care 119 mg/dl (65-105)
[2021-02-09] MEDS: lisinopriL 20 MG TABLET 40 MG PO (09:16)
[2021-02-09] MEDS: METOPROLOL SUCCINATE EXT REL 50 MG TABCR PO (09:16)
[2021-02-09] MEDS: hydroCHLOROthiazide 12.5 MG CAPSULE PO (09:16)
[2021-02-09] MEDS: ENOXAPARIN 40 MG/0.4 ML SYRINGE SUB-Q (09:17)
[2021-02-09] MEDS: FUROSEMIDE 40 MG TABLET PO (09:17)
[2021-02-09] MEDS: ATORVASTATIN 20 MG TABLET PO (09:17)
[2021-02-09 11:42] LABS: Glucose Point of Care 114 mg/dl (65-105)
--- NOTE | 2021-02-09 11:59 | PM.IMPN ---
Progress Note: A&P Assessment and Plan (1) Hypertensive emergency: Code(s): I16.1 - Hypertensive emergency Status: Acute Assessment and Plan: IV Lasix changed to p.o. Lasix this morning RESTART HOME MEDS HYDRALAZINE IV P.R.N. ECHOCARDIOGRAM SUPPORTIVE CARE CONTINUE TO MONITOR Consult cardiology ischemic evaluation per Cardiology (2) Acute cardiogenic pulmonary edema: Code(s): I50.1 - Left ventricular failure, unspecified Status: Acute Assessment and Plan: Improving gradually, IV Lasix changed to p.o. Lasix this morning (3) Morbid obesity with BMI of 50.0-59.9, adult: Code(s): E66.01 - Morbid (severe) obesity due to excess calories; Z68.43 - Body mass index [BMI] 50.0-59.9, adult Status: Acute Assessment and Plan: LIFESTYLE AND DIET MODIFICATIONS (4) Controlled diabetes mellitus, without long-term current use of insulin: Code(s): E11.9 - Type 2 diabetes mellitus without complications Status: Acute Assessment and Plan: CARB CONSISTENT DIET monitor blood sugar (5) ESTHER on CPAP: Code(s): G47.33 - Obstructive sleep apnea (adult) (pediatric); Z99.89 - Dependence on other enabling machines and devices Status: Acute Assessment and Plan: CONTINUE CPAP Subjective Date/time seen: 02/09/21 11:59 Interval history: patient feels better today Exam Const: General: cooperative and no acute distress HENMT: Head: normal to inspection Eyes: General: appearance normal, both eyes and all related structures Neck: Neck: normal visual inspection Chest: Chest palpation & inspection: normal inspection of the chest Resp: Effort & Inspection: normal respiratory effort Cardio: Jugular venous distension: no JVD Rate: regular rate GI: Inspection: normal to inspection and non-distended Objective Data Vital Signs Vital Signs: Vital Signs - 24 hr 02/08/21 12:00 02/08/21 14:00 02/08/21 15:52 Temperature 98.1 F Pulse Rate 71 66 66 Respiratory Rate 18 18 Blood Pressure 141/60 H Pulse Oximetry 97 94 02/08/21 16:00 02/08/21 18:00 02/08/21 20:00 Temperature 96.9 F L Pulse Rate 67 74 69 Respiratory Rate 20 Blood Pressure 154/68 H Pulse Oximetry 95 02/08/21 22:48 02/08/21 23:39 02/09/21 00:00 Temperature 97.6 F Pulse Rate 68 75 61 Respiratory Rate 18 20 Blood Pressure 138/69 Pulse Oximetry 94 97 02/09/21 04:00 02/09/21 06:00 02/09/21 08:00 Temperature 97.3 F L Pulse Rate 59 L 60 68 Respiratory Rate 22 H Blood Pressure 124/84 Pulse Oximetry 97 02/09/21 08:02 02/09/21 09:16 02/09/21 10:00 Temperature 97.7 F Pulse Rate 64 68 70 Respiratory Rate 20 Blood Pressure 126/72 Pulse Oximetry 96 Intake/Output Intake/Output: Intake & Output 02/06/21 02/07/21 02/08/21 02/09/21 23:59 23:59 23:59 23:59 Intake Total 1270 3810 360 Output Total 8306 8333 0696 [facility] -5928 -1825 -4650 Meds/Results Medications: Active Medications Generic Name Dose Route Start Last Admin Trade Name Tim PRN Reason Stop Dose Admin Atorvastatin Calcium 20 mg 02/08/21 09:00 02/09/21 09:17 Atorvastatin 20 Mg Tablet PO 20 mg DAILY VIDA Administration Enoxaparin Sodium 40 mg 02/07/21 11:00 02/09/21 09:17 Enoxaparin 40 Mg/0.4 Ml Syringe SUB-Q 40 mg DAILY VIDA Administration Furosemide 40 mg 02/09/21 09:00 02/09/21 09:17 Furosemide 40 Mg Tablet PO 40 mg BID VIDA Administration Hydralazine HCl 10 mg 02/07/21 02:56 Hydralazine Hcl 20 Mg/Ml Vial IV PUSH Q8H PRN SBP > 180 Hydrochlorothiazide 12.5 mg 02/08/21 14:20 02/09/21 09:16 Hydrochlorothiazide 12.5 Mg Capsule PO 12.5 mg QAM VIDA Administration Insulin Aspart 7 units 02/07/21 08:00 02/09/21 11:48 Insulin Aspart (*Bkc) 100 Units/Ml 0.05 units/kg (7 units) Not Given SUB-Q TIDWM VIDA Lisinopril 40 mg 02/07/21 09:00 02/09/21 09:16 Lisinopril 20 Mg Ta
--- NOTE | 2021-02-09 12:24 | PM.DS ---
DS: Admitting Diagnosis Admitting Diagnosis Admitting Diagnosis: Shortness of breath pulmonary congestion DS: Discharge Diagnosis Discharge Diagnosis (1) Flash pulmonary edema: Code(s): J81.0 - Acute pulmonary edema Status: Acute (2) Hypertensive emergency: Code(s): I16.1 - Hypertensive emergency Status: Acute DS: Summary Hospital Course Reason for hospitalization: pulmonary edema hypertension Hospital Course: 56-year-old male with past medical history significant for morbid obesity, dyslipidemia, hypertension. PATIENT PRESENTED TO THE EMERGENCY ROOM DUE TO SHORTNESS OF BREATH found to have pulmonary edema, and hypertension emergency, treated with IV Lasix and blood pressure medicine, patient condition improved during this hospitalization, cardiology were consulted, echo was done, plan to discharge patient home on Lasix, hydrochlorothiazide, and potassium, resume lisinopril and beta-cornelia follow-up with cardiology as an outpatient for stress test plan to discharge patient home today after being seen by the site damage prevention technician Time Spent with Patient Time attestation: Total time spent providing and/or coordinating discharge services: Time spent: Greater than 30 minutes DS: Data Data Completed and Pending Labs on day of discharge: Labs from last 24 hours 02/09/21 02/09/21 02/09/21 11:33 06:58 04:45 WBC RBC Hgb Hct MCV MCH MCHC RDW Plt Count MPV Sodium 140 Potassium 3.5 Chloride 103 Carbon Dioxide 27 Anion Gap 10 BUN 18 Creatinine 0.80 Estim Creat Clear Calc 125 Estimated GFR > 60 Glucose 109 POC Capillary Glucose 114 H 119 H Calcium 9.2 Magnesium 2.2 Total Bilirubin 0.9 AST 28 ALT 37 Alkaline Phosphatase 55 Troponin I Total Protein 7.0 Albumin 4.5 02/09/21 02/08/21 02/08/21 04:45 19:54 15:41 WBC 10.2 H RBC 4.99 Hgb 15.0 Hct 46.0 MCV 92.2 MCH 30.1 MCHC 32.6 RDW 14.1 Plt Count 154 MPV 11.3 H Sodium Potassium Chloride Carbon Dioxide Anion Gap BUN Creatinine Estim Creat Clear Calc Estimated GFR Glucose POC Capillary Glucose 128 H 116 H Calcium Magnesium Total Bilirubin AST ALT Alkaline Phosphatase Troponin I Total Protein Albumin 02/08/21 14:34 WBC RBC Hgb Hct MCV MCH MCHC RDW Plt Count MPV Sodium Potassium Chloride Carbon Dioxide Anion Gap BUN Creatinine Estim Creat Clear Calc Estimated GFR Glucose POC Capillary Glucose Calcium Magnesium Total Bilirubin AST ALT Alkaline Phosphatase Troponin I < 0.012 Total Protein Albumin Discharge Plan Discharge Consulting providers: Michell Araujo Discharging Clinician: Trevor Rossi Patient Disposition: Home, Self-Care Activity: as tolerated Diet: heart healthy Patient Instructions: Antibiotic Form, DASH Eating Plan (GEN) Stand Alone Forms: General Discharge Information Follow-up/Referrals: Michell Araujo DO [Physician] - 1 Week Discharge Medications: New hydrochlorothiazide 12.5 mg Capsule 12.5 mg PO QAM 30 Days Qty: 30 RF: 0 furosemide 40 mg Tablet 40 mg PO BID 30 Days Qty: 60 RF: 0 potassium chloride 20 mEq packet 20 meq PO BID 15 Days RF: 0 Continued metoprolol succinate 50 mg tablet extended release 24 hr 50 mg PO DAILY Qty: 90 RF: 3 atorvastatin 20 mg tablet 20 mg PO DAILY Qty: 90 RF: 3 cetirizine [Zyrtec] 10 mg tablet 10 mg PO DAILY RF: 0 aspirin [Adult Aspirin Regimen] 81 mg tablet,delayed release (DR/EC) 81 mg PO DAILY RF: 0 metformin 500 mg tablet extended release 24hr 2,000 mg PO DAILY Qty: 360 RF: 3 lisinopril 40 mg tablet 40 mg PO DAILY Qty: 90 RF: 3 Date of admission: 02/07/21 01:47 Primary Care Provider: Kimani Key Admitting Provider: Herminio Fierro
--- NOTE | 2021-02-09 14:38 | PC.NURSE ---
Patient discharged to home at 1439. Education was provided on medication and physician follow up. Patient had no questions at this time.
--- NOTE | 2021-02-09 15:01 | PM.PNCARD ---
Progress Note: A&P Assessment and Plan (1) Hypertensive emergency: Code(s): I16.1 - Hypertensive emergency Status: Acute Assessment and Plan: BP elevated presentation secondary to sodium indiscretion with significant weight gain prior to admission consistent with acute heart failure with preserved ejection fraction and flash pulmonary edema. Serial troponins negative. No evidence for myocardial ischemia. 2D echo preserved EF, no significant valve pathology. BP much better controlled with addition of HCTZ 12.5mg daily. counseled on renal and K+ effects. Check BMP one week after discharge. 34 minutes spent in the care of this patient at bedside in discussions with the patient, his , chart review, and medical decision making. (2) Flash pulmonary edema: Code(s): J81.0 - Acute pulmonary edema Status: Acute Assessment and Plan: Resolved. Arnie Lasix 40mg BID. Add KCl 20MEQ BID. Counseled to take BID Lasix 40mg x3 days then decrease to once daily along with KCl 20MEQ once daily. Check BMP in one week. Call office Wednesday morning (tomorrow morning) to set up Nuclear stress test and schedule 2 week in office follow up. CHF counseling, 2grma daily Na intake, daily weights, call with weight gain, edema or SOB. Follow BP very closely, ambulate with caution. Counseled to avoid high heat/humidity given meds, diuretics dehydration risk and hypotension. He and agree. Call with BP readings or concerns. Stable for d/c today as above. (3) ESTHER on CPAP: Code(s): G47.33 - Obstructive sleep apnea (adult) (pediatric); Z99.89 - Dependence on other enabling machines and devices Status: Acute Assessment and Plan: Compliance. Counseled on the importance. He understands. (4) Morbid obesity with BMI of 50.0-59.9, adult: Code(s): E66.01 - Morbid (severe) obesity due to excess calories; Z68.43 - Body mass index [BMI] 50.0-59.9, adult Status: Acute Assessment and Plan: Continue lifestyle modification, weight loss, reduction caloric intake and increased calorie expenditure counseling performed. (5) Coronary artery disease without angina pectoris: Code(s): I25.10 - Atherosclerotic heart disease of [place] coronary artery without angina pectoris Status: Acute Assessment and Plan: Asymptomatic, mild nonobstructive disease on [facility] 2019, negative serial troponins no acute ischemic changes on EKG presentation. Check EKG in a.m.. (6) Mixed hyperlipidemia: Code(s): E78.2 - Mixed hyperlipidemia Status: Acute Assessment and Plan: Statin therapy. Goal LDL less than 70. (7) Controlled diabetes mellitus, without long-term current use of insulin: Code(s): E11.9 - Type 2 diabetes mellitus without complications Status: Acute Assessment and Plan: Defer to primary service. Subjective Date/time seen: Date of Service: 02/09/21 15:01 Follow up for pulmonary edema, hypertensive emergency Feeling very well, at baseline. no SOB, edema improved, no dizziness, CP. Ambulating well, no BORJAS. Ready to go home. BP much better controlled, diureses very well overnight. Arnie meds, HCTZ added. Review of Systems Review of Systems: All systems reviewed & are unremarkable except as noted in HPI and below Constitutional: Constitutional: Reports as per HPI and Reports no additional constitutional complaints Eyes: Eyes: Reports as per HPI and Reports no additional eye complaints ENT: Reports system reviewed and no additional complaints, except as documented and Reports as per HPI Cardiovascular: Cardiovascular: Reports as per HPI, Reports pedal edema and Reports leg edema Respiratory: Respiratory: Reports as per HPI Gastrointestinal: Gastrointestinal: Reports as per HPI and Reports no additional gastrointestinal complaints Genitourinary: Genitourinary: Reports as per HPI Musculoskeletal: Musculoskeletal: Reports no additional muscu
== END 2021-02-09 14:50 | disposition home or self-care (01) ==
LOC: ANHED 01:07 → ANHIMU 02:15
PROVIDERS: Internal Medicine Cardiovascular Disease; Admitting Provider Internal Medicine; Emergency Provider Emergency Medicine; PCP Family Medicine; Visit Provider Emergency Medicine
DX: J81.0 Acute pulmonary edema (principal); I16.1 Hypertensive emergency; R06.02 Shortness of breath; I10 Essential (primary) hypertension; E11.9 Type 2 diabetes mellitus without complications; I25.10 Atherosclerotic heart disease of native coronary artery without angina pectoris; E78.2 Mixed hyperlipidemia; G47.33 Obstructive sleep apnea (adult) (pediatric); E66.01 Morbid (severe) obesity due to excess calories; Z68.43 Body mass index [BMI] 50.0-59.9, adult; Z79.84 Long term (current) use of oral hypoglycemic drugs; Z79.82 Long term (current) use of aspirin; Z99.89 Dependence on other enabling machines and devices
CPT/HCPCS: 36415; 71045; 80048; 80053; 82948; 83735; 83880; 84484; 85025; 85027; 85055; 85610; 85730; 93005; 93306; 96372; 96374; 96375; 96376; 99285; A9270; G0378; J1650; J1940

== ENCOUNTER 2021-03-12 01:06 | Day surgery (SDC) | payer OTHER, SELFPAY ==
[2021-03-11 15:44] VITALS: BMI 49.6
[2021-03-12] VITALS (10 sets, daily range): BP systolic 104–144; BP diastolic 64–79; PULSE 57–70; RESP 15–24; TEMP 35.9–36.3; O2SAT 96–100; BMI 49.4
[2021-03-12 09:24] LABS: Basophils Percent Auto 0.6 % (0.2-1.2); Eosinophils Absolute Auto 0.2 K/mm3 (0-0.3); Eosinophils Percent Auto 2.7 % (0-4.4); Hematocrit 42.2 % (42.0-52.0); Hemoglobin 14.2 g/dL (14.0-18.0); Immature Granulocyte Absolute 0.03 K/mm3 (0.00-0.031); Immature Granulocyte Percent A 0.5 % (0-0.5); Immature Platelet Fraction Pct 5.1 % (0.9-11.2); Lymphocytes Absolute Auto 1.97 K/mm3 (0.9-3.2); Lymphocytes Percent Auto 31.1 % (18.3-44.2); Mean Corpuscular HGB Conc 33.6 g/dl (32-36); Mean Corpuscular Hemoglobin 30.6 pg (26-34); Mean Corpuscular Volume 90.9 fl (80-100); Mean Platelet Volume 10.8 fl (7.4-10.4); Monocytes Absolute Auto 0.5 K/mm3 (0.1-0.6); Monocytes Percent Auto 7.9 % (2.6-8.5); Neutrophils Absolute Auto 3.6 K/mm3 (1.3-6.7); Neutrophils Percent Auto 57.2 % (45.5-73.1); Platelet Count Result 128 k/mm3 (150-375); Red Blood Count 4.64 M/mm3 (4.6-6.20); Red Cell Distribution Width 13.5 % (11.5-14.5); White Blood Count 6.3 K/mm3 (4.5-10.0)
--- NOTE | 2021-03-12 09:26 | WPDMODSED ---
Moderate Sedation Note-Pt Data Patient Data Diagnosis: recent episode of abrupt pulmonary edema abnormal nuclear stress test Present Complaint: this is a 56-year-old gentleman who interestingly was found to have modest coronary plaquing angiographically in 2019. He was therefore not followed actively in the office but then presented subsequently with acute pulmonary edema. Re-evaluation with a nuclear stress test suggest evidence of ischemic heart disease and follow-up angiography has been recommended for today. Procedure to be performed/Plan: Left heart catheterization, possible PCI Allergies Allergy/AdvReac Type Severity Reaction Status Date / Time No Known Allergies Allergy Verified 03/12/21 09:04 Home Medications Medication Instructions Recorded Confirmed Type aspirin 81 mg tablet,delayed 81 mg PO DAILY 07/10/19 03/12/21 History release metoprolol succinate 50 mg 50 mg PO DAILY #90 tablet 06/18/20 03/12/21 Rx tablet,extended release 24 hr metformin 500 mg tablet,extended 2,000 mg PO DAILY #360 tablet 08/05/20 03/11/21 Rx release 24hr lisinopril 40 mg tablet 40 mg PO DAILY #90 tablet 08/23/20 03/12/21 Rx atorvastatin 20 mg tablet 20 mg PO DAILY #90 tablet 12/17/20 03/12/21 Rx cetirizine 10 mg tablet 10 mg PO DAILY 12/17/20 03/12/21 History hydrochlorothiazide 12.5 mg capsule 12.5 mg PO QAM 30 Days #30 cap 02/09/21 03/11/21 Rx furosemide 40 mg PO DAILY 03/11/21 03/12/21 History potassium chloride 20 meq PO DAILY 03/11/21 03/11/21 History Current Medications: Active Medications Sodium Chloride (Normal Saline Iv) 500 mls @ 100 mls/hr IV CONT .Q5H VIDA Sedation/Anesthesia: No previous sedation/anesthesia problems (including family history). [facility] Past Medical History Medical History Norman's palsy Biliary colic Controlled diabetes mellitus, without long-term current use of insulin Coronary artery disease without angina pectoris Cough Encounter for prostate cancer screening Encounter for wellness examination in adult Essential (primary) hypertension Fever Mixed hyperlipidemia Morbid obesity with BMI of 50.0-59.9, adult ESTHER on CPAP Right carpal tunnel syndrome Seasonal allergic rhinitis Shortness of breath Surgical History Surgical History History of carpal tunnel release History of cholecystectomy (~2020) Hx of appendectomy Family History Family History Daughter Depression Father Family history of coronary artery disease Hypertension Acute myocardial infarction Cerebrovascular accident Social History Social History Smoking status: Never smoker Alcohol intake: current Drinks per week: 7 Substance use: never Gender identity (if verbalized by the patient): Male Spiritual care concerns: No Mod Sed Physical Exam Physical Exam Pre Procedural Exam: Normal: Nose, Neck, Throat, Airway, Lungs, Heart Rate, Heart Rhythm, Neuro Exam and Extremities and Variation: Appearance ( morbidly obese white male) and Heart Size ( PMI not palpable) Hours since solid foods: 12 Hours since liquid intake: 12 Mallampati Classification: class II Internal Medicine - PN: Obj Da Meds/Results Medications: Active Medications Generic Name Dose Route Start Last Admin Trade Name Freq PRN Reason Stop Dose Admin Sodium Chloride 500 mls @ 100 mls/hr 03/12/21 08:30 Normal Saline Iv IV CONT .Q5H VIDA Labs CBC & Chem 7: 03/12/21 09:02 03/12/21 09:02 ASA Classification/Sedation ASA Classification/Sedation ASA Class: III Emergent: No Risks: Risks, benefits and alternatives explained and patient/family accepted plan for sedation. Patient re-evaluated immediately prior to sedation.
[2021-03-12 09:37] LABS: Anion Gap 7 mmol/L (8-16); Blood Urea Nitrogen 15 mg/dL (9-20); Calcium 9.1 mg/dL (8.4-10.2); Carbon Dioxide 28 mmol/L (22-30); Chloride 105 mmol/L (98-107); Estimated CRCL calculation 122 ml/min; Estimated Glomerular Filt Rate > 60; Glucose 118 mg/dL (65-110); Potassium 4.2 mmol/L (3.4-5.0); Sodium 140 mmol/L (137-145)
--- NOTE | 2021-03-12 10:13 | PM.IMHP ---
H&P: HPI History of Present Illness Date/Time: 03/12/21 10:13 Chief Complaint: recent episode of pulmonary edema abnormal nuclear stress test Narrative: this is a 56-year-old man admitted today as an outpatient for an elective follow-up left heart catheterization because of a recent episode of abrupt pulmonary congestion and an abnormal nuclear stress test. He was referred to couple of years ago with some atypical sounding symptoms of chest pain. A stress test was abnormal which led to a coronary angiogram. At that time he was found to have modest coronary disease with will was felt to be about mild 40-50% stenosis of the proximal LAD and some modest atherosclerosis with ectasia in the mid RCA. No significant treatment other than the aspirin and beta-blockers was recommended for this and I he has done well until recently when he entered the hospital with severe shortness of breath and some pulmonary edema which responded quickly to diuresis. His biomarkers did not rise during that admission however a subsequent nuclear stress test in the office as an outpatient was abnormal suggesting a partially fixed inferior defect and some decline in LV function. As a result of this a follow-up angiogram has been recommended for today. Review of Systems Constitutional: Constitutional: Reports no additional constitutional complaints Eyes: Eyes: Reports no additional eye complaints ENT: Reports system reviewed and no additional complaints, except as documented Cardiovascular: Cardiovascular: Reports as per HPI Respiratory: Respiratory: Reports dyspnea Gastrointestinal: Gastrointestinal: Reports no additional gastrointestinal complaints Musculoskeletal: Musculoskeletal: Reports no additional musculoskeletal complaints Integumentary/Breasts: Skin/Breast: Reports system reviewed and no additional complaints, except as docu Neurologic: Reports system reviewed and no additional complaints, except as documented [facility] Past Medical History Medical History Norman's palsy Biliary colic Controlled diabetes mellitus, without long-term current use of insulin Coronary artery disease without angina pectoris Cough Encounter for prostate cancer screening Encounter for wellness examination in adult Essential (primary) hypertension Fever Mixed hyperlipidemia Morbid obesity with BMI of 50.0-59.9, adult ESTHER on CPAP Right carpal tunnel syndrome Seasonal allergic rhinitis Shortness of breath Surgical History Surgical History History of carpal tunnel release History of cholecystectomy (~2019) Hx of appendectomy Family History Family History Daughter Depression Father Family history of coronary artery disease Hypertension Acute myocardial infarction Cerebrovascular accident Social History Social History Smoking status: Never smoker Alcohol intake: current Drinks per week: 7 Substance use: never Gender identity (if verbalized by the patient): Male Spiritual care concerns: No Meds Home Medications and Allergies Home Medications Medication Instructions Recorded Confirmed Type aspirin 81 mg tablet,delayed 81 mg PO DAILY 07/10/19 03/12/21 History release metoprolol succinate 50 mg 50 mg PO DAILY #90 tablet 06/18/20 03/12/21 Rx tablet,extended release 24 hr metformin 500 mg tablet,extended 2,000 mg PO DAILY #360 tablet 08/05/20 03/11/21 Rx release 24hr lisinopril 40 mg tablet 40 mg PO DAILY #90 tablet 08/23/20 03/12/21 Rx atorvastatin 20 mg tablet 20 mg PO DAILY #90 tablet 12/17/20 03/12/21 Rx cetirizine 10 mg tablet 10 mg PO DAILY 12/17/20 03/12/21 History hydrochlorothiazide 12.5 mg capsule 12.5 mg PO QAM 30 Days #30 cap 02/09/21 03/11/21 Rx furosemide 40 mg PO DAILY 03/11/21 03/12/21 Hist
--- NOTE | 2021-03-12 11:09 | WPDCARDPROC ---
Cardiac Cath Procedure Note Date of procedure:: 03/12/21 Performing physician:: Timbo Choudhury MD Indication:: Recent episode of abrupt pulmonary edema abnormal nuclear stress test Brief clinical history:: this is a 56-year-old man previously found to have modest coronary disease angiographically who then had an admission to the hospital 1 month ago with severe acute shortness of breath picture of pulmonary edema. Because of this I episode nuclear stress testing was done which suggested significant ischemia as well as questionable evidence of previous inferior infarction. The patient is morbidly obese it should be mentioned as far as reviewing nuclear findings. In this setting a follow-up angiogram has been recommended. Procedure Procedure performed:: Left ventriculography coronary angiography Angio-Seal to right femoral artery Sedation/Medication given:: fentanyl 50 mg Versed 2 mg case start time 10:33 a.m. case end time 11:01 a.m. sedation provided by Carmina Castillo RN, trained observer Access site:: right femoral artery Estimated blood loss:: 15-20 cc Procedure note:: patient was brought to the cardiac catheterization lab in postabsorptive state where the right femoral triangle was prepared in the usual fashion. Anesthesia was provided with 1% lidocaine infiltrated locally. Using the modified Seldinger technique a 5 Cam[place] sheath was placed into the femoral artery and left heart catheterization was carried out. I 1st used a 5 [place] angled pigtail catheter to measure left-sided hemodynamics and to injected LV g in the are AO projection. After this a 5 [place] JR4 catheter was used to engage inject the right coronary artery in orthogonal projections. The left coronary artery was engaged and injected using a 5 [place] FL4 catheter in multiple projections. Following review the cineangiograms the case was terminated and a cineangiogram was done of the femoral artery through the sheath. I 6 [place] Angio-Seal device was then deployed with good hemostatic result. 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 Findings:: Hemodynamics: Central aortic pressure is 120/58 left ventricle 120/0 end-diastolic 16 there is no gradient on pullback across the aortic valve. Left ventricle: The LV appears to be normal in size all segments contract well there was a run of ventricular tachycardia during the LV injection but following that contractility appeared to be normal in all segments ejection fraction about 60% the left main coronary artery is a medium caliber vessel which in most views looks free of some significant disease in two views however the FABRICIO cranial and the AP caudal view there appears to be stenosis in the distal aspect of the left main bridging over the origin of the circumflex. In the caudal view this appears to be about 60% stenosis at least. Left anterior descending is a moderate caliber artery extending down to the apex the proximal aspect of the LAD before any significant bifurcations has a somewhat complex atherosclerotic plaque of about 70-80%. This appears to have progressed where there was about 50-60% stenosis on previous angiography. Circumflex is a moderate to large caliber vessel giving rise to the marginal branches. The ostium of the circumflex appears to be involved by the distal left main plaque described above. In addition to this the largest OM branch of the circumflex has a discrete 80-90% stenosis in its proximal aspect. The distal circumflex appears to be free of significant disease. The right coronary artery is moderate caliber and dominant to the posterior circulation the body of the right coronary is rather tortuous. There are sequential 50-60% lesions in the RCA in this tortuous segment. There appears to be DAVEY 3 flow in the right coronary. Conclusion:: 1.
--- NOTE | 2021-03-12 16:08 | SUR.PHASEII ---
0990 D/C instructions reviewed with patient and his questions answered, both verbalize understanding. Copy of CD sent with patient for his follow up visit at [facility]. IV was d/c'd, cath intact, pressure applied. Pt transported to [facility] via wheelchair where his drove him home in private vehicle.
== END 2021-03-12 15:30 | disposition home or self-care (01) ==
PROVIDERS: PCP Family Medicine; Visit Provider Specialist
PROC: 4A023N7 Measurement of Cardiac Sampling and Pressure, Left Heart, Percutaneous Approach (ICD-10-PCS; CPT 93452; principal; 2021-03-12 10:00)
DX: I25.10 Atherosclerotic heart disease of native coronary artery without angina pectoris (principal); R94.39 Abnormal result of other cardiovascular function study; I27.20 Pulmonary hypertension, unspecified; E66.01 Morbid (severe) obesity due to excess calories; Z68.42 Body mass index [BMI] 45.0-49.9, adult; E11.9 Type 2 diabetes mellitus without complications; I10 Essential (primary) hypertension; E78.2 Mixed hyperlipidemia; G47.33 Obstructive sleep apnea (adult) (pediatric); Z79.82 Long term (current) use of aspirin; Z79.84 Long term (current) use of oral hypoglycemic drugs
CPT/HCPCS: 36415; 80048; 85025; 85055; 93458; C1760; C1887; C1894; G0269; J1644; J2250; J3010; J7040

== ENCOUNTER 2021-07-03 07:15 | Outpatient (RCR) | payer OTHER, SELFPAY ==
[2021-04-25 15:52] VITALS: PULSE 63
[2021-05-14 08:16] LABS: Glucose Point of Care 136 mg/dl (65-105)
[2021-05-14 08:16] LABS: Glucose Point of Care 128 mg/dl (65-105)
[2021-06-12 16:41] LABS: Glucose Point of Care 102 mg/dl (65-105)
[2021-06-12 17:26] LABS: Glucose Point of Care 103 mg/dl (65-105)
[2021-06-30 07:31] LABS: Glucose Point of Care 115 mg/dl (65-105)
[2021-06-30 10:07] LABS: Glucose Point of Care 123 mg/dl (65-105)
== END 2021-07-03 08:15 | disposition home or self-care (01) ==
LOC: ANHCPREHAB 07:15
PROVIDERS: PCP Family Medicine; Visit Provider Specialist
DX: Z95.5 Presence of coronary angioplasty implant and graft (principal)
CPT/HCPCS: 82948; 93798

== ENCOUNTER 2022-03-16 13:37 | Outpatient (RCR) | payer OTHER, SELFPAY ==
[2022-03-16] MEDS: diphenhydrAMINE HCl CAP 25 MG CAPSULE PO (14:49)
[2022-03-16] MEDS: ACETAMINOPHEN 325 MG TABLET 650 MG PO (14:49)
[2022-03-16] MEDS: FAMOTIDINE 20 MG TABLET PO (14:50)
[2022-03-16 14:58] VITALS: BP 133/76; PULSE 78; RESP 18; TEMP 37.3; O2SAT 97
[2022-03-16] MEDS: BEBTELOVIMAB 175 MG/2 ML VIAL IV PUSH (15:07)
[2022-03-16 15:54] VITALS: BP 126/70; PULSE 71; RESP 16; O2SAT 96
== END 2022-03-16 16:00 ==
LOC: AMCINF 13:37
PROVIDERS: PCP Family Medicine; Referring Provider Family Medicine; Visit Provider Internal Medicine Hematology & Oncology
DX: U07.1 COVID-19 (principal); I10 Essential (primary) hypertension; I25.10 Atherosclerotic heart disease of native coronary artery without angina pectoris; E11.9 Type 2 diabetes mellitus without complications
CPT/HCPCS: A9270; M0222; Q0222

== ENCOUNTER 2022-09-15 08:34 | Outpatient (CLI) | payer OTHER, SELFPAY ==
--- NOTE | ~2022-09-15 | US_ITS ---
EXAMINATION: US abdomen complete DATE: 09/15/2022 09:19 INDICATION: Fatty liver. TECHNIQUE: Multiple grayscale and Doppler ultrasound images of the abdomen were obtained. COMPARISON: CT abdomen and pelvis 10/01/2019 FINDINGS: Abdominal aorta is normal in caliber. Inferior vena cava is normal. The visualized portions of the head and body of the pancreas are normal. There is diffuse hepatic steatosis. There is normal flow in main portal vein. The gallbladder is absent. The common duct is normal and measures 3 mm. Th e kidneys are normal in size. The spleen is normal in size. IMPRESSION: 1. Diffuse hepatic steatosis. Reviewed, dictated and finalized at [facility]. [facility]
== END 2022-09-15 08:35 | disposition home or self-care (01) ==
PROVIDERS: PCP Family Medicine
DX: K76.0 Fatty (change of) liver, not elsewhere classified (principal)
CPT/HCPCS: 76700

== ENCOUNTER 2023-03-13 11:11 | Emergency (ER) | payer OTHER, SELFPAY ==
--- NOTE | ~2023-03-13 | CT_ITS ---
EXAMINATION: CT abdomen pelvis w con DATE: 03/13/2023 12:47 INDICATION: Upper abdominal pain, nausea, vomiting, diarrhea TECHNIQUE: Computed tomography (CT) of the abdomen and pelvis was performed with 100 CC Omnipaque 350 intravenous contrast. Automated exposure control and iterative reconstruction technique were employe d. Exam dose: 1473.44 mGy-cm total exam DLP. COMPARISON: 09/15/2022 complete abdominal ultrasound examination 10/01/2019 CT abdomen pelvis FINDINGS: The lung bases are clear. Normal heart size. No pericardial or pleural effusion. There is diffuse hepatic steatosis. No hepatic, splenic, pancreatic space-occupying mass lesion or bi le duct or pancreatic duct dilatation is detected. 1.4 cm left adrenal nodule. If there is no known primary malignancy, this is most likely an adrenal a denoma. The adrenal glands are otherwise unremarkable. No renal mass lesion or urinary tract calculus or hydroureteronephrosis. The urinary bladder is unrem arkable. Mild prostate enlargement. Normal caliber of the abdominal aorta. No intraperitoneal or retroperitoneal or pelvic mass lesion or adenopathy or ascites is noted. The appendix is not visualized. Mild colonic diverticulosis; no CT evidence of diverticulitis. No bow el obstruction or intraperitoneal free air. Very small fat-containing umbilical hernia. Diffuse idiopathic skeletal hyperostosis of the thoracic spine. No suspicious osteolytic or osteoblas tic lesions are noted. Bilateral hip osteoarthritis. IMPRESSION: 1.4 cm left adrenal nodule, not significant change since October 01, 2019, likely a izzy ign adrenal adenoma Mild colonic diverticulosis Diffuse hepatic steatosis Diffuse idiopathic skeletal hyperostosis of the thoracic spine Reviewed, dictated and finalized at [facility]. Reviewed, dictated and finalized at [facility]. IMPRESSION: 1.4 cm left adrenal nodule, not significant change since October 01, 2019, likely a benign adrenal adenoma Mild colonic diverticulosis Diffuse hepatic steatosis Diffuse idiopathic skeletal hyperostosis of the thoracic spine
[2023-03-13 11:15] VITALS: BP 126/72; PULSE 73; RESP 17; TEMP 36.5; O2SAT 97
[2023-03-13 11:30] LABS: Basophils Absolute Auto 0.1 K/mm3 (0.0-0.1); Basophils Percent Auto 0.4 % (0.2-1.2); Eosinophils Absolute Auto 0.1 K/mm3 (0-0.3); Eosinophils Percent Auto 0.8 % (0-4.4); Hematocrit 48.5 % (42.0-52.0); Hemoglobin 16.5 g/dL (14.0-18.0); Immature Granulocyte Absolute 0.03 K/mm3 (0.00-0.031); Immature Granulocyte Percent A 0.3 % (0-0.5); Lymphocytes Absolute Auto 1.63 K/mm3 (0.9-3.2); Lymphocytes Percent Auto 14.3 % (18.3-44.2); Mean Corpuscular Hemoglobin 31.3 pg (26-34); Mean Corpuscular Volume 91.9 fl (80-100); Mean Platelet Volume 10.3 fl (7.4-10.4); Monocytes Absolute Auto 0.4 K/mm3 (0.1-0.6); Monocytes Percent Auto 3.6 % (2.6-8.5); Neutrophils Absolute Auto 9.2 K/mm3 (1.3-6.7); Neutrophils Percent Auto 80.6 % (45.5-73.1); Platelet Count Result 171 k/mm3 (150-375); Red Blood Count 5.28 M/mm3 (4.6-6.20); Red Cell Distribution Width 13.9 % (11.5-14.5); White Blood Count 11.4 K/mm3 (4.5-10.0)
[2023-03-13 11:36] LABS: Appearance Urine Clear (Clear); Bilirubin Urine Negative (Negative); Blood Urine Negative (Negative); Color Urine Yellow (Yellow); Glucose Urine UA 3+ mg/dL (Negative); Ketones Urine 1+ mg/dL (Negative); Leukocyte Esterase Ur Negative LEU/UL (Negative); Nitrate Urine Negative (Negative); Protein Urine Negative (Negative); Urobilinogen Urine 0.2 mg/dL (<2.0)
[2023-03-13 11:42] LABS: Alanine Aminotransferase 56 U/L (6-50); Albumin Level 4.8 g/dL (3.5-5.1); Alkaline Phosphatase 60 U/L (38-126); Anion Gap 12 mmol/L (8-16); Aspartate Amino Transferase 32 U/L (17-59); Bilirubin,Total 1.2 mg/dL (0.2-1.3); Blood Urea Nitrogen 13 mg/dL (9-20); Calcium 8.9 mg/dL (8.4-10.2); Carbon Dioxide 24 mmol/L (22-30); Chloride 102 mmol/L (98-107); Estimated CRCL calculation 103 ml/min; Estimated Glomerular Filt Rate > 60; Glucose 103 mg/dL (65-110); Lipase 58 U/L (23-300); Potassium 3.7 mmol/L (3.4-5.0); Sodium 138 mmol/L (137-145)
[2023-03-13 11:50] LABS: Add Urine Microscopic? NO
[2023-03-13] MEDS: DICYCLOMINE HCL 10 MG CAPSULE 20 MG PO (12:55)
[2023-03-13] MEDS: PANTOPRAZOLE SODIUM IV 40 MG VIAL IV PUSH (12:55)
[2023-03-13] MEDS: ONDANSETRON INJ 4 MG/2 ML VIAL IV PUSH (12:55)
[2023-03-13] MEDS: LOPERAMIDE HCL 2 MG CAPSULE 4 MG PO (12:55)
--- NOTE | 2023-03-13 13:12 | ED.NAVMDI ---
HPI - Nausea/Vomiting/Diarrhea General Chief complaint: Nausea/Vomiting/Diarrhea Stated complaint: diarrhea Time Seen by Provider: 03/13/23 11:53 History of Present Illness HPI Narrative: 58-year-old male presenting with nausea, vomiting, diarrhea, he does have history of diabetes for which he is on Jardiance and Ozempic, however he has already been on these medications for a long period of time and they are not new. No abdominal pain other than some diffuse cramping with diarrhea, although overall diarrhea has improved since he started taking loperamide. Had gone to urgent care where he stated that the doctor there recommended a CT scan for his elevated white count. Related Data Home Medications Medication Instructions Recorded Confirmed aspirin 81 mg tablet,delayed 81 mg PO DAILY 07/10/19 01/05/23 release (Adult Aspirin Regimen) furosemide 40 mg tablet 40 mg PO DAILY 03/11/21 01/05/23 multivitamin 1 tablet PO DAILY 04/25/21 01/05/23 atorvastatin 40 mg tablet 40 mg PO DAILY 07/01/21 01/05/23 cholecalciferol (vitamin D3) 25 1,000 unit PO DAILY 07/01/21 01/05/23 mcg (1,000 unit) tablet cyanocobalamin (vitamin B-12) 1,000 mcg PO DAILY 07/01/21 01/05/23 1,000 mcg capsule potassium chloride 20 mEq oral 20 meq PO DAILY 07/01/21 01/05/23 packet fluticasone propionate 50 1 spray intranasal BID 01/05/23 01/05/23 mcg/actuation nasal spray,suspension semaglutide 0.25 mg or 0.5 mg (2 0.25 mg subcut WEEKLY 01/05/23 01/05/23 mg/3 mL) subcutaneous pen injector (Ozempic) Allergies Allergy/AdvReac Type Severity Reaction Status Date / Time topiramate [From Topamax] AdvReac Headache Verified 03/13/23 13:02 Review of Systems Review of Systems: CONST: No fever. HEENT: No sore throat C/V: No chest pain RESP: No cough GI: Reports abdominal pain, nausea, vomiting[, diarrhea] : No dysuria. M/S: No joint pain. SKIN: No rash. NEURO: [No headache or focal numbness or weakness] PSYCH: [No depression] PMFSH Past Medical History Medical History (Updated 03/13/23 @ 13:13 by Diane Fine MD) Acute cardiogenic pulmonary edema Adult situational stress disorder (~2021) Norman's palsy Biliary colic Candidiasis of anus Chronic bilateral low back pain without sciatica Controlled diabetes mellitus, without long-term current use of insulin glucose 111 with hemoglobin A1c 5.7 on 07/01/2021. Glucose 102 With hemoglobin A1c 5.7 and microalbumin ratio less than 24 on 03/09/2022. Glucose 113 with hemoglobin A1c 5.8 on 07/21/2022. Coronary artery disease without angina pectoris progression of proximal LAD lesion with significant distal LAD and obtuse marginal disease with 50-60% lesions in the RCA on 03/12/2021 Cough COVID-19 (03/13/22) symptoms started evening 03/13/2022. Requested positive 03/14/2022. Cannot take Paxlovid with Plavix. COVID-19 (07/22/22) 2nd episode, vaccinated, tested positive 07/23/2022. Encounter for prostate cancer screening PSA 0.5 on 07/01/2021. PSA normal at 0.5 on 03/09/2022. 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 Total cholesterol 155, triglycerides 234, HDL 37 and LDL 79 on 03/09/2022. Total cholesterol 161 with triglycerides elevated at 328, HDL of 39 and LDL 70 on 07/21/2022. Morbid obesity with BMI of 45.0-49.9, adult Morbid obesity with BMI of 50.0-59.9, adult ESTHER on CPAP Right carpal tunnel syndrome Seasonal allergic rhinitis Shortness of breath Vitamin B12 deficiency anemia vitamin B12 1627 with hemoglobin 15.0 on 07/01/2021. Level normal
[2023-03-13 13:25] VITALS: BP 126/70; PULSE 66; RESP 16; O2SAT 98
== END 2023-03-13 13:25 | disposition home or self-care (01) ==
PROVIDERS: Emergency Provider Emergency Medicine; PCP Family Medicine
DX: R11.2 Nausea with vomiting, unspecified (principal); R19.7 Diarrhea, unspecified; I25.10 Atherosclerotic heart disease of native coronary artery without angina pectoris; I10 Essential (primary) hypertension; E11.9 Type 2 diabetes mellitus without complications; E66.01 Morbid (severe) obesity due to excess calories; Z68.42 Body mass index [BMI] 45.0-49.9, adult; G47.33 Obstructive sleep apnea (adult) (pediatric); D51.9 Vitamin B12 deficiency anemia, unspecified; Z85.820 Personal history of malignant melanoma of skin; Z86.16 Personal history of COVID-19; Z90.49 Acquired absence of other specified parts of digestive tract; Z79.84 Long term (current) use of oral hypoglycemic drugs; Z79.85 Long-term (current) use of injectable non-insulin antidiabetic drugs; Z79.82 Long term (current) use of aspirin
CPT/HCPCS: 36415; 74177; 80053; 81003; 83690; 85025; 96374; 96375; 99284; A9270; C9113; J2405; Q9967

== ENCOUNTER 2024-10-03 19:41 | Emergency (ER) | payer OTHER, SELFPAY ==
--- NOTE | ~2024-10-03 | XR_ITS ---
EXAMINATION: XR chest 1V portable Exam Date/Time: 10/03/2024 21:00 [employer] OFFICER HISTORY: hx chf, Diarrhea Comparison: 02/07/2021. RESULT: Lines, tubes, and devices: None. Lungs and pleura: Clear. Cardiomediastinal silhouette: Stable. Other: No acute osseous or upper abdominal finding. IMPRESSION: No acute cardiopulmonary process. Reviewed, dictated and finalized at location K. [employer] OFFICER
--- OUTSIDE RECORDS SUMMARY | 2024-10-03 19:43 | XMS_ITS | Clinical Summary ---
Author Organization [facility] [address] Address [address] [place] [address] Care Team Providers Care Patent Examiner Name Role Phone Kimani Key MD Primary Care Provider [phone] Timbo Choudhury MD Unavailable [phone] Allergies Active Allergy Reactions Criticality Noted Date Comments Cat Dander Sneezing Low 03/20/2021 Medications aspirin (ENTERIC COATED ASPIRIN) 81 mg enteric coated tabletIndicati ons:prevention of thrombosis Take 1 tablet (81 mg total) by mouth daily 30 tablet 11 07/06/20 19 Active cholecalcifero l (VITAMIN D-3) 1,000 unit Take 1 tablet/capsu le (1,000 Units total) by mouth daily Active cyanocobalamin (Vitamin B-12) 1,000 mcg sublingual tablet Take 1 tablet (1,000 mcg total) by mouth daily Active multivitamin capsule Take 1 capsule by mouth daily Active Jardiance 25 mg tablet 07/01/20 21 Active Mounjaro 10 mg/0.5 mL pen injector Inject 0.5 mL (10 mg total) as directed once a week 08/18/19 24 Active buPROPion (WELLBUTRIN) 100 mg tablet Take 1 tablet (100 mg total) by mouth 2 (two) times a day Active hydroCHLOROthi azide (MICROZIDE) 12.5 mg capsule TAKE 1 CAPSULE EVERY MORNING 90 capsule 3 10/11/19 24 Active atorvastatin (LIPITOR) 40 mg tabletIndicati ons:Coronary artery disease involving tun[place]ak coronary artery of tun[place] heart without angina pectoris TAKE 1 TABLET DAILY 90 tablet 3 03/10/20 24 Active metoprolol XL (TOPROL-XL) 50 mg extended release tablet Take 1 tablet (50 mg total) by mouth daily 90 tablet 08/23/19 25 Active potassium chloride ER (Klor-Con M20) 20 mEq CR tablet TAKE 1 TABLET DAILY 90 tablet 1 09/06/19 25 Active furosemide (LASIX) 40 mg tablet TAKE 1 TABLET DAILY 90 tablet 3 09/28/19 25 Active lisinopriL (PRINIVIL,ZEST RIL) 10 mg tablet Take 1 tablet (10 mg total) by mouth daily 90 tablet 2 09/29/19 25 026 Active cetirizine 10 mg capsule Take 10 mg by mouth daily 025 Discontinued( erapy completed) Klor-Con M20 20 mEq CR tablet TAKE 1 TABLET DAILY 90 tablet 3 09/14/19 24 025 Discontinued lisinopriL (PRINIVIL,ZEST RIL) 20 mg tablet Take 2 tablets (40 mg total) by mouth daily 09/22/19 24 025 Discontinued furosemide (LASIX) 40 mg tablet TAKE 1 TABLET DAILY 90 tablet 3 10/04/19 24 025 Discontinued Active Problems Problem Noted Date Diagnosed Date Encounter for weight management 09/29/2024 Metabolic syndrome 09/29/2024 Class 3 severe obesity due t o excess calories with serious comorbidity and body mass index (BMI) of 50.0 to 59.9 in adult 09/29/2024 Diabetes mellitus type II, controlled 09/29/2024 Obstructive sleep apnea 09/29/2024 Hyperlipidemia associated with type 2 diabetes m ellitus 04/14/2021 Presence of stent in coronary artery 04/14/2021 Coronary artery disease invo lving tununak coronary artery of tun[place] heart without angina pectoris 01/16/2020 Encounters Date Type Department Care Team Description 10/03/2024 7:00 PM LIDAR SCIENTIST Emergency [facility] Emergency Department [address] [place] [address] 09/29/2024 4:00 PM LIDAR SCIENTIST Office Visit [facility] Cardiology at [address] [place] [address] Timbo Choudhury MD Coronary artery disease involving tununak coronary artery of tununak heart without angina pectoris (Primary Dx); Presence of stent in coronary artery from Last 3 Months Surgical History Surgery Date Site/Laterality Comments APPENDECTOMY CARPAL TUNNEL RELEASE CARDIAC CATHETERIZATION 05/16/2019 - 06/15/2019 ANKLE SURGERY Left CHOLECYSTECTOMY 05/13/2020 VASECTOMY LIPOMA RESECTION x2 Medical History Medical History Date Comments Diabetes mellitus (HCC) Hypertension Sleep apnea Hyperlipidemia Coronary artery disease 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 Anxiety 09/01/2022 Family History Medical History Relation Name Comments Hyperlipidemia Brother Cliff Meyer Hypertension Brother Cliff Meyer Heart disease Father Antwan Meyer Hyperlipidemia Father Antwan Meyer Hypertension Father Antwan Meyer Obesity Father Antwan Meyer Diabetes Maternal Grandmother Amy Anne Obesity Mother Shayy Meyer Relation Name Status Comments Brother Cliff Meyer Alive Father Antwan Meyer Alive Maternal Grandmother Amy Anne Mother Shayy Meyer Alive Social History Tobacco Use Types Packs/Day Years Used Date Smoking Tobacco: Never Cigarettes Smokeless Tobacco: Never Tobacco Cessation:Counseling Given: Not Answered Alcohol Use Standard Drinks/Week Comments Yes 14 (1 standard drink = 0.6 oz pu re alcohol) AUDIT-C Answer Date Recorded Q1: How often do you have a drink containing alc ohol? 2-3 times a week 03/24/2021 Q2: How many drinks containi ng alcohol do you have on a typical day when you are drinking? 3 or 4 03/24/2021 Q3: How often do you have si x or more drinks on one occasion? Monthly 03/24/2021 Sex and Gender Information Value Date Recorded Sex Assigned at Not on file Legal Sex Male 12:57 AM LIDAR SCIENTIST Gender Identity Male 02/24/2021 1:31 PM CDT Sexual Orientation Straight 02/24/2021 1: 31 PM CDT Obstetrics History Last Filed Vital Signs Vital Sign Reading Time Taken Comments Blood Pressure 106/70 09/29/2024 3:58 PM LIDAR SCIENTIST Pulse 69 09/29/2024 3:58 PM LIDAR SCIENTIST Temperature 36.8 C (98.2 F) 03/24/2021 12:24 PM CDT Respiratory Rate 15 03/24/2021 5:15 PM CDT Oxygen Saturation 96% 09/29/2024 3:58 PM LIDAR SCIENTIST Inhaled Oxygen Concentration - - Weight 111.1 kg (245 lb) 09/29/2024 3:58 PM LIDAR SCIENTIST Height 167.6 cm (5' 6 ) 09/29/2024 3:58 PM LIDAR SCIENTIST Body Mass Index 39.54 09/29/2024 3:58 PM LIDAR SCIENTIST Plan of Treatment Health Maintenance Due Date Last Done Comments Albumin Creatinine Ratio, Urine 1967 Colon Cancer Screening-Colonoscopy 1967 Depression Screening 1967 Hemoglobin A1C 1967 Hepatitis C Screening 1967 Prostate Cancer Screening-PSA 1967 Dilated Eye Exam 1967 Foot Exam 1967 DTaP/Tdap/Td Vaccine (1 - Tdap) 1978 Hepatitis B Screening 1985 Regular Well Visit/Exam 18-64 1985 Pneumococcal vaccine <65 (1 of 2 - PCV) 1986 Zoster Vaccine (1 of 2) 2017 eGFR 03/24/2022 03/24/2021, 08/12/2020, 02/18/2021 Influenza Vaccine (#1) 2024 06/09/2020 Lipid Panel 03/09/2025 03/09/2024, 08/16, 08/19/2021, Additional history exists Medical Devices Implanted Type Area Displayer Merchandise Device Identifier Shelf Expiration Date Model / Serial / Lot [employer] [id number] Synergy Xd Monorail 3mm 16mm 144cm Delivery System 1 Access Port - [id number] - [id number] Implanted:Qty: 1 on 03/24/2021 by Joaquim Cristina MD PhD at [facility] Stent [employer] 11/06/2022 [id number] / [id number] / [id number] [employer] [id number] Synergy Xd Monorail 2.5mm 16mm 144cm Delivery System 1 Access - [id number] Implanted:Qty: 1 on 03/24/2021 by Joaquim Cristina MD PhD at [facility] Stent Left: Coronary [employer] Cookie 12/30/2022 [id number] / / [id number] [employer] Cookie/[employer] [id number] Angio-Seal Evolution 8fr .038in Guidewire Bypass Tube Suture - [id number] Implanted:Qty: 1 on 03/24/2021 by Joaquim Cristina MD PhD at [facility] Stent Right: Femoral [employer] Cookie 11/13/2021 [id number] / / [id number] Procedures Procedure Name Priority Date/Time Associated Diagnosis Comments POCT LIPID PANEL Routine 03/09/2024 8:25 AM CDT Lipid screening EGFR STAT 03/24/2021 5:20 PM CDT from Last 3 Months or Most Recently Relevant to Health Maintenance Results * POCT lipid panel (03/09/2024 8:25 AM CDT) Cholesterol, POC 129 mg/dL HDL, POC 36 mg/dL Triglycerides, POC 210 mg/dL LDL Cholesterol POC 51 mg/dL Chol/HDL Ratio, POC 1.4 Non-HDL Cholesterol, POC 93 mg/dL Cholesterol Total, POC 129 mg/dL Capillary blood 03/09/2024 8 :25 AM CDT Timbo Choudhury MD POINT OF CARE TEST ORDER YVAN Edited Result - Final * eGFR (03/24/2021 5:20 PM CDT) eGFR >90 90 - 130 mL/min/1.7 3 m2 [facility] Comment: Interpretive Data Reference Interval Normal >/= 90 mL/min/1.73m2 Mildly decreased* 60 - 89 mL/min/1.73m2 Mildly to moderately decreased 45 - 59 mL/min/1.73m2 Moderately to severely decreased 30 - 44 mL/min/1.73m2 Severely decreased 15 - 29 mL/min/1.73m2 Kidney Failure < 15 mL/min/1.73m2 *Relative to young adult level Estimated glomerular filtration rate is determined by the CKD-EPI equation recommended by the National Kidney Foundation (KDIGO 2012 Clinical Practice Guideline for the Evaluation and Management of Chronic Kidney Disease. Kidney Intnl Suppl Aug 2012;3:1). The CKD-EPI equation should not be used for patients with unstable renal function and has not been validated in children and those over 70. Current interpretive data was last reviewed 2020 Blood specimen (specimen) 03/24/2021 5:20 PM CDT 03/24/2021 5:31 PM CDT us Sandi Tam RN MANAGED CARE LAB BLOOD ORDERABLES Final Re sult [facility] [place] [address] from Last 3 Months or Most Recently Relevant to Health Maintenance Insurance [facility] CHOICE PLUS [facility] ACCESS CHOICE [place] [id number] ANTH ACCESS CHOICE Advance Directives For more information, please contact: [phone] * Full Code (Latest Code Status on File) Date Activated Date Inactivated Comments 03/24/2021 3:40 PM 03/24/2021 10:48 PM Healthcare Agents on File Name Relationship Healthcare Agent Relationshi p Communication Costa Meyer Spouse Health Care Agent [email or web address] Care Teams Patent Examiner Relationship Specialty Start Date End Date Kimani Key MD [address] [address] PCP - General 12/21/18 Timbo Choudhury MD [address] [facility] [address] [place], [place] [id number] Consulting Physician Cardiology 02/23/23
--- OUTSIDE RECORDS SUMMARY | 2024-10-03 19:43 | XMS_ITS | Referral Summary ---
Author Organization [facility] Address [address] [facility] [place] [address] Care Team Providers Care Gastroenterology Professor Name Role Phone Unavailable Primary Care Provider Unavailabl e Source Comments [facility],non-owned Affiliates and Associated Physician Practices is amultiple site organization consisting of ambulatory clinics and hospital sitesin [place], [place], [place] and [place]. This disclosure is being madepursuant to the Care Everywhere program and may not contain all information available regarding this patient. Last updated 18.[facility] Social History Tobacco Use Types Packs/Day Years Used Date Smoking Tobacco: Never Assessed Sex and Gender Information Value Date Recorded Sex Assigned at Not on file Gender Identity Not on file Sexual Orientation Not on file Plan of Treatment Not on file
--- OUTSIDE RECORDS SUMMARY | 2024-10-03 19:43 | XMS_ITS | Encounter Summary ---
Author Organization [facility] Address [address] [place] [address] [place] [address] Care Team Providers Care Police Captain Precinct Name Role Phone Unavailable Primary Care Provider Unavailabl e Encounter Details Date Type Department Care Team (Late st Contact Info) Description 08/23/2023 Lab Requisition [facility] - DermPath Lab [address] [facility], [place] [address] Elena Wilkins DO [address] [facility] 3 [place] [address] Social History Tobacco Use Types Packs/Day Years Used Date Smoking Tobacco: Never Assessed Sex and Gender Information Value Date Recorded Sex Assigned at Not on file Gender Identity Not on file Sexual Orientation Not on file documented as of this encounter Plan of Treatment Not on file documented as of this encounter Procedures Procedure Name Priority Date/Time Associated Diagnosis Comments DERMATOPATHOLOGY Routine 08/23/2023 9:5 7 AM ISOBUTYLENE OPERATOR CHIEF documented in this encounter Results * DERMATOPATHOLOGY (08/23/2023 9:57 AM ISOBUTYLENE OPERATOR CHIEF) Case Report Dermatopathology Report Case: [id number] Authorizing Provider: Elena Wilkins DO Collected: 08/23/2023 09:57 AM Ordering Location: [facility] DermPath Lab Received: 08/23/2023 04:29 PM Pathologist: Lilliam Peña MD Specimen: Skin, mid lower back 4 4:58 PM ISOBUTYLENE OPERATOR CHIEF DERMATOPATHOLOGY LABORATORY Final Diagnosis Specimen A. SKIN, mid lower back: COMPOUND MELANOCYTIC NEVUS (D22.5) 4 4:58 PM ISOBUTYLENE OPERATOR CHIEF DERMATOPATHOLOGY LABORATORY Clinical History A: Nevus vs Atypia 4:58 PM [facility] DERMATOPATHOLOGY LABORATORY Gross Description Specimen A: Received is one formalin filled container labeled with the patient's name and designated mid lower back. The specimen consists of a shave biopsy measuring 11x9x1 mm. Jar 0 4:58 PM [facility] DERMATOPATHOLOGY LABORATORY Microscopic Description Specimen A. SKIN, mid lower back: There are nests of melanocytes at the dermal-epidermal junction and within the dermis. 4:58 PM [facility] DERMATOPATHOLOGY LABORATORY Disclaimer An external and internal positive and negative controls are appropriate for the histochemical, immunohistochemical and immunofluorescence stain(s) in this case (if any), except where stated explicitly. The performance characteristics of the stain(s) cited in this report were developed and its performance characteristic determined by the Dermatopathology Laboratory at [facility], directed by Dr. Jen Burns. These tests need not be, and therefore are not, approved by the [place] Food and Drug Administration. The tests are used for clinical purposes. Billing Codes Specimen Charges Stain Charges 98521 1 4:58 PM [facility] DERMATOPATHOLOGY LABORATORY Embedded Images 4:58 PM [facility] DERMATOPATHOLOGY LABORATORY Pathology/Cytolo gy TISSUE SPECIMEN FROM SKIN / Unknown 08/23/2023 9:57 AM ISOBUTYLENE OPERATOR CHIEF 08/23/2023 4:29 PM ISOBUTYLENE OPERATOR CHIEF Elena Wilkins DO LAB - PATHOLOGY/C YTOLOGY ORDERABLES DERMATOPATHOLOGY LABORATORY [facility] - Department of Dermatology [address], [address] [phone] documented in this encounter Visit Diagnoses Not on filedocumented in this encounter
--- OUTSIDE RECORDS SUMMARY | 2024-10-03 19:43 | XMS_ITS | Encounter Summary ---
Author Organization [facility] Address [address] [place] [address] [place] [address] Care Team Providers Care Director Strategic Account Management Name Role Phone Unavailable Primary Care Provider Unavailabl e Encounter Details Date Type Department Care Team (Late st Contact Info) Description 03/07/2024 Lab Requisition [facility] - DermPath Lab [address] [facility] [place] [place] [place] [address] Elena Wilkins DO [address] [facility] [address] [place] [address] Social History Tobacco Use Types Packs/Day Years Used Date Smoking Tobacco: Never Assessed Sex and Gender Information Value Date Recorded Sex Assigned at Not on file Gender Identity Not on file Sexual Orientation Not on file documented as of this encounter Plan of Treatment Not on file documented as of this encounter Procedures Procedure Name Priority Date/Time Associated Diagnosis Comments DERMATOPATHOLOGY Routine 03/07/2024 10:1 1 AM CDT documented in this encounter Results * DERMATOPATHOLOGY (03/07/2024 10:11 AM CDT) Case Report Dermatopathology Report Case: [id number] Authorizing Provider: Elena Wilkins DO Collected: 03/07/2024 10:11 AM Ordering Location: [facility] - Received: 03/07/2024 04:27 PM DermPath Lab Pathologist: Uyen Burns MD Specimen: Skin, right medial cheek 4 3:16 PM CDT DERMATOPATHOLOGY LABORATORY Final Diagnosis Specimen A. SKIN, right medial cheek: ACTINIC KERATOSIS (L57.0) CHRONIC PERIFOLLICULITIS (L73.8) 4 3:16 PM CDT DERMATOPATHOLOGY LABORATORY Clinical History R/O BCC 3:16 PM CDT DERMATOPATHOLOGY LABORATORY Gross Description Specimen A: Received is one formalin filled container labeled with the patient's name and designated right medial cheek. The specimen consists of a shave biopsy measuring 5x4x1 mm. Jar 0. 3:16 PM CDT DERMATOPATHOLOGY LABORATORY Microscopic Description Specimen A. SKIN, right medial cheek: There is focal parakeratosis. The lower half of the epidermis shows disorderly maturation of keratinocytes with nuclear pleomorphism. Sections show a perifollicular lymphohistiocytic infiltrate. 3:16 PM CDT DERMATOPATHOLOGY LABORATORY Disclaimer An external and internal positive and negative controls are appropriate for the histochemical, immunohistochemical and immunofluorescence stain(s) in this case (if any), except where stated explicitly. The performance characteristics of the stain(s) cited in this report were developed and its performance characteristic determined by the Dermatopathology Laboratory at [facility], directed by Dr. Jen Burns. These tests need not be, and therefore are not, approved by the [place] Food and Drug Administration. The tests are used for clinical purposes. Billing Codes Specimen Charges Stain Charges 42028 1 3:16 PM CDT DERMATOPATHOLOGY LABORATORY Embedded Images 3:16 PM CDT DERMATOPATHOLOGY LABORATORY Pathology/Cytolo gy TISSUE SPECIMEN FROM SKIN / Unknown 03/07/2024 10:11 AM CDT 03/07/2024 4:27 PM CDT Elena Wilkins DO LAB - PATHOLOGY/C YTOLOGY ORDERABLES DERMATOPATHOLOGY LABORATORY [facility] - Department of Dermatology [address] [phone] documented in this encounter Visit Diagnoses Not on filedocumented in this encounter
--- OUTSIDE RECORDS SUMMARY | 2024-10-03 19:43 | XMS_ITS | Encounter Summary ---
Author Organization [facility] Address [address] [place] [address] [place] [address] Care Team Providers Care Lead Maintenance Technician Name Role Phone Unavailable Primary Care Provider Unavailabl e Encounter Details Date Type Department Care Team (Late st Contact Info) Description 09/20/[address] [facility] DermPath Lab [address] [facility], [place] [address] Elena Wilkins DO [address] [facility] [address] [place] [address] Social History Tobacco Use Types Packs/Day Years Used Date Smoking Tobacco: Never Assessed Sex and Gender Information Value Date Recorded Sex Assigned at Not on file Gender Identity Not on file Sexual Orientation Not on file documented as of this encounter Plan of Treatment Not on file documented as of this encounter Procedures Procedure Name Priority Date/Time Associated Diagnosis Comments DERMATOPATHOLOGY Routine 09/19/2019 12:0 0 AM NETWORK ARCHITECT documented in this encounter Results * DERMATOPATHOLOGY (09/19/2019 12:00 AM NETWORK ARCHITECT) Case Report Dermatopathology Report Case: [id number] Authorizing Provider: Elena Wilkins DO Collected: 09/19/2019 12:00 AM Ordering Location: [facility] DermPath Lab Received: 09/20/2019 06:19 AM Pathologist: Uyen Burns MD Specimen: Skin, left neck 0 12:42 PM NETWORK ARCHITECT DERMATOPATHOLOGY LABORATORY Addendum 1 At the request of the ordering clinician, the remainder of the specimen is submitted for histologic examination. Sections demonstrate lobules of mature adipose tissue with focal intervening bands of dense, sclerotic collagen. Atypical cells are not seen. Lipomas with a prominent component of intervening fibrous bands have been referred to as fibrolipomas. The final diagnosis remains unchanged. 0 12:42 PM NETWORK ARCHITECT DERMATOPATHOLOGY LABORATORY Addendum electronically signed by Uyen Burns MD on 09/27/2019 at 12:42 PM Final Diagnosis Specimen A. 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 The specimen consists of a [id number] mm piece of skin. The specimen is serially sectioned and a telemarketing representative section is submitted in cassette 1. Jar 1. 0 12:42 PM [facility] DERMATOPATHOLOGY LABORATORY Microscopic Description Specimen A. SKIN, left neck: Sections show unremarkable epidermis and dermis overlying lobules of mature adipocytes with minimal fibrous trabeculae. Occasional multinucleated cells with foamy cytoplasm are seen, which are favored to represent lipophages. COMMENT: The histopathologic findings of the portion of the lesion sampled are reassuring for a benign lipoma. However, as this lesion is present at the margins of the specimen, clinicopathological correlation is recommended as to the nature of the remaining lesion. 0 12:42 PM [facility] DERMATOPATHOLOGY LABORATORY Disclaimer An external and internal positive and negative controls are appropriate for the histochemical, immunohistochemical and immunofluorescence stain(s) in this case (if any), except where stated explicitly. The performance characteristics of the stain(s) cited in this report were developed and its performance characteristic determined by the Dermatopathology Laboratory at [facility], directed by Dr. Jen Burns. These tests need not be, and therefore are not, approved by the [place] Food and Drug Administration. The tests are used for clinical purposes. Billing Codes Specimen Charges Stain Charges 66423 1 0 12:42 PM [facility] DERMATOPATHOLOGY LABORATORY Embedded Images 0 12:42 PM [facility] DERMATOPATHOLOGY LABORATORY Pathology/Cytolog y TISSUE SPECIMEN FROM SKIN / Unknown 09/19/2019 09/20/2019 6:19 AM NETWORK ARCHITECT Elena Wilkins DO LAB - PATHOLOGY/C YTOLOGY ORDERABLES DERMATOPATHOLOGY LABORATORY [facility] - Department of Dermatology [address] [facility], [address] [place] [address], [facility] [phone] documented in this encounter Visit Diagnoses Not on filedocumented in this encounter
--- OUTSIDE RECORDS SUMMARY | 2024-10-03 19:43 | XMS_ITS | Patient Health Summary ---
Author Organization [facility] Address [address] [facility] [address] [place] [address] Care Team Providers Care Application Development Project Manager Name Role Phone Unavailable Primary Care Provider Unavailabl e Note from [facility],non-owned Affiliates and Associated Physician Practices is amultiple site organization consisting of ambulatory clinics and hospital sitesin [place], [place], [place] and [place]. This disclosure is being madepursuant to the Care Everywhere program and may not contain all information available regarding this patient. Last updated 18.[facility] Social History Tobacco Use Types Packs/Day Years Used Date Smoking Tobacco: Never Assessed Sex and Gender Information Value Date Recorded Sex Assigned at Not on file Gender Identity Not on file Sexual Orientation Not on file Procedures * DERMATOPATHOLOGY(Performed 03/07/2024) * DERMATOPATHOLOGY(Performed 08/23/2023) * DERMATOPATHOLOGY(Performed 08/19/2021) * DERMATOPATHOLOGY(Performed 07/24/2021) * DERMATOPATHOLOGY(Performed 09/19/2019) Results * DERMATOPATHOLOGY (03/07/2024 10:11 AM CDT) Only the most recent of5 resultswithin the time period is included. Case Report Dermatopathology Report Case: [id number] Authorizing Provider: Elena Wilkins DO Collected: 03/07/2024 10:11 AM Ordering Location: [facility] - Received: 03/07/2024 04:27 [...] characteristic determined by the Dermatopathology Laboratory at [facility], directed by Dr. Jen Burns. These tests need not be, and therefore are not, approved by the [place] Food and Drug Administration. The tests are used for clinical purposes. Billing Codes Specimen Charges Stain Charges 55305 1 3:16 PM CDT DERMATOPATHOLOGY LABORATORY Embedded Images 3:16 PM CDT DERMATOPATHOLOGY LABORATORY Pathology/Cytolo gy TISSUE SPECIMEN FROM SKIN / Unknown 03/07/2024 10:11 AM CDT 03/07/2024 4:27 PM CDT Elena Wilkins DO LAB - PATHOLOGY/C YTOLOGY ORDERABLES DERMATOPATHOLOGY LABORATORY [facility] - Department of Dermatology [address], 3rd Floor [address] [phone]
--- OUTSIDE RECORDS SUMMARY | 2024-10-03 19:43 | XMS_ITS | Encounter Summary ---
Author Organization [facility] Address [address] [place] [address] Care Team Providers Care Bailiff Name Role Phone Kimani Key MD Primary Care Provider [phone] Timbo Choudhury MD Unavailable [phone] Encounter Details Date Type Department Care Team (Late st Contact Info) Description 10/03/2024 7:00 PM [facility] Emergency Department [address] [place] [address] Social History Tobacco Use Types Packs/Day Years Used Date Smoking Tobacco: Never Cigarettes Smokeless Tobacco: Never Alcohol Use Standard Drinks/Week Comments Yes 14 [...] on file 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
--- OUTSIDE RECORDS SUMMARY | 2024-10-03 19:43 | XMS_ITS | Clinical Summary ---
Author Organization [facility] Address [address] [address] Care Team Providers Care Tire Trucker Name Role Phone Unavailable Primary Care Provider Unavailabl e Source Comments [facility],non-owned Affiliates and Associated Physician Practices is amultiple site organization consisting of ambulatory clinics and hospital sitesin [place], [place], [place] and [place]. This disclosure is being madepursuant to the Care Everywhere program and may not contain all information available regarding this patient. Last updated 18.[facility] [employer] Social History Tobacco Use Types Packs/Day Years Used Date Smoking Tobacco: Never Assessed Sex and Gender Information Value Date Recorded Sex Assigned at Not on file Gender Identity Not on file Sexual Orientation Not on file Plan of Treatment Health Maintenance Due Date Last Done Comments COLOGUARD (AGES 45-75) - COL ON CA SCREENING 1965 COLON MONITORING 1967 COLONOSCOPY - COLON CA SCREENING 1967 CT COLONOGRAPHY - COLON CA SCREENING 1965 Colorectal Cancer Screening 1965 FIT - COLON CA SCREENING 1967 FLEX SIG - COLON CA SCREENING 1967 LIPID TESTING 1965 HIV SCREENING 1982 HEPATITIS C SCREENING 01/06/1985 DTAP/TDAP/TD VACCINES (1 - Tdap) 1986 HEPATITIS B VACCINE (1 of 3 - 19+ 3-dose series) 1986 PNEUMOCOCCAL VACCINE 50+ (1 of 1 - PCV) 2017 ZOSTER VACCINE (1 of 2) 2017 COVID-19 VACCINE ( - 2023-2 5 season) 2024 INFLUENZA VACCINE (#1) 2024 DEPRESSION SCREENING 08/16/2024 HIB VACCINE Aged Out No longer eligi ble based on patient's age to complete this topic HPV VACCINE Aged Out No longer eligi ble based on patient's age to complete this topic MENINGOCOCCAL (Group B) VACCINE Aged Out No longer eligible based on patient's age to complete this topic MENINGOCOCCAL VACCINE Aged Out No vangie ebony eligible based on patient's age to complete this topic PNEUMOCOCCAL VACCINE Aged Out No long er eligible based on patient's age to complete this topic
--- OUTSIDE RECORDS SUMMARY | 2024-10-03 19:43 | XMS_ITS | Encounter Summary ---
Author Organization [facility] Address [address] [place] [address] Phone Care Team Providers Care Nuclear Waste Process Operator Name Role Phone Kimani Key MD Primary Care Provider [phone] Timbo Choudhury MD Unavailable [phone] Encounter Details Date Type Department Care Team (Late st Contact Info) Description 03/19/2021 Telephone [facility] Cardiology [address] [facility] Advanced Medicine 8th [place] [address] [place] [address] Joaquim Cristina MD PhD [address] [place] [address] Social History Tobacco Use Types Packs/Day Years Used Date Smoking Tobacco: Never Smokeless Tobacco: Never Alcohol Use Standard Drinks/Week Comments Yes 14 (1 standard drink = 0.6 oz pu re alcohol) AUDIT-C Answer Date Recorded Frequency of Alcohol Consumption 4 or more times a week 07/06/2019 Average Number of Drinks 1 or 2 019 Frequency of Binge Drinking Not on file 06/17 Sex and Gender Information Value Date Recorded Sex Assigned at Not on file 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
--- OUTSIDE RECORDS SUMMARY | 2024-10-03 19:43 | XMS_ITS | Referral Summary ---
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 Emergency Emergency Department [address] [place] [address] 09/29/2024 4:00 PM ODD BUNDLE WORKER Office Visit [facility] Cardiology at [address] [place] [address] Timbo Choudhury MD 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 (Primary Dx); Presence of stent in coronary artery from Last 3 Months Allergies Active Allergy Reactions Criticality Noted Date [...] 40 mg tabletIndicati ons: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 TAKE 1 TABLET [...] Hyperlipidemia associated with type 2 diabetes m prashant 04/14/2021 Presence of stent in coronary artery 04/14/2021 Coronary artery disease invo lving [place] apache coronary artery of [place] apache heart without angina pectoris 01/16/2020 Social History Tobacco Use Types Packs/Day Years [...] on file Legal 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 Male 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 Gender Identity Male 02/24/2021 1:31 PM CDT Sexual Orientation Straight 02/24/2021 1: 31 PM CDT Last Filed Vital Signs Vital Sign Reading Time Taken Comments Blood Pressure 106/70 09/29/2024 3:58 PM ODD BUNDLE WORKER Pulse 69 09/29/2024 3:58 PM ODD BUNDLE WORKER Temperature 36.8 C (98.2 F) 03/24/2021 12:24 PM CDT Respiratory Rate 15 03/24/2021 5:15 PM CDT Oxygen Saturation 96% 09/29/2024 3:58 PM ODD BUNDLE WORKER Inhaled Oxygen Concentration - - Weight 111.1 kg (245 lb) 09/29/2024 3:58 PM ODD BUNDLE WORKER Height 167.6 cm (5' 6 ) 09/29/2024 3:58 PM ODD BUNDLE WORKER Body Mass Index 39.54 09/29/2024 3:58 PM ODD BUNDLE WORKER Plan of Treatment Not on file Medical Devices Implanted Type Area Fish [employer]chery Man Device Identifier Shelf Expiration Date Model / Serial / Lot [employer] Cookie [id number] Synergy Xd Monorail 3mm 16mm 144cm Delivery System 1 Access Port - [id number] - [id number] Implanted:Qty: 1 on 03/24/2021 by Joaquim Cristina MD PhD at [facility] Stent [employer] Cookie 11/06/2022 [id number] / [id number] / [id number] [employer] Cookie [id number] Synergy Xd Monorail 2.5mm 16mm 144cm Delivery System 1 Access - [id number] Implanted:Qty: 1 on 03/24/2021 by Joaquim Cristina MD PhD at [facility] Stent Left: Coronary [employer] Cookie 12/30/2022 [id number] / / [id number] Daig Cookie/[employer] [id number] Angio-Seal Evolution 8fr .038in Guidewire Bypass Tube Suture - [id number] Implanted:Qty: 1 on 03/24/2021 by Joaquim Cristina MD PhD at [facility] Stent Right: Femoral [employer] Medical Cookie 11/13/2021 [id number] / / [id number] Procedures Procedure Name Priority Date/Time Associated Diagnosis [...] Capillary blood 03/09/2024 8 :25 AM CDT us Timbo Choudhury MD POINT OF CARE TEST ORDER YVAN Edited Result - Final * eGFR (03/24/2021 5:20 PM CDT) Pathologist [facility] eGFR >90 90 - 130 mL/min/1.7 3 m2 [facility] Comment: Interpretive Data Reference Interval Normal [...] 03/24/2021 5:31 PM CDT us Sandi Tam FULL SERVICE VENDING DRIVER LAB BLOOD ORDERABLES Final Re sult [facility] Department [place] [address] from Last 3 Months or Most Recently Relevant to Health Maintenance Insurance [facility] CHOICE [facility]US [facility] H[facility]/PPO Address: [facility] [address] [place] [address] [facility] ACCESS CHOICE [facility] H[facility]/PPO Address: [address] [address] [place] [address] [facility] H[facility]/PPO Address: [address] [address] [place] [address] [facility] ACCESS CHOICE Advance Directives For more information, please contact: [phone] * Full Code (Latest Code Status on File) Date Activated Date Inactivated Comments 03/24/2021 3:40 PM 03/24/2021 10:48 PM Healthcare Agents on File Name Relationship Healthcare Agent Relationshi p Communication Costa Meyer Spouse Health Care Agent [email or web address] Care Teams Trademark Attorney Relationship Specialty Start Date End Date Kimani Key MD [address] [place] [address] PCP - General 12/21/18 Timbo Choudhury MD [address] [id number] Consulting Physician Cardiology 02/23/23
--- OUTSIDE RECORDS SUMMARY | 2024-10-03 19:43 | XMS_ITS | Continuity of Care Document ---
Author Organization [facility] Address [address] [place] [address] Phone Care Team Providers Care Loop Puller Name Role Phone Kaley RICHARDSON, Angeli Unavailable Unavailable Allergies, Adverse Reactions, Alerts Substance Reaction Status Criticality No Known Allergies Active No Inform ation Medications Medication Instructions Dosage Effective Dates (start - stop) Status Comments LISINOPRIL (unknown strength) take 1 tablet by oral route every day Not Available - Active METFORMIN HCL (unknown strength) take 1 tablet by oral route 2 times every day with morning and evening meals Not Available - Active Procedures Procedure Date Kept Appointment No Charge Encounter Feb Kept Appointment No Charge Encounter Feb Advance Directives Directive Yes / No Effective Date File Name No Information Encounters Encounter Description Practice Location Reason(s) For Visit Diagnoses Date Provider Providers Copied on Encounter [facility], [address], [place], [place], [id number], tel:[phone] [place] No Information 0 Kaley Jeremiahdul. [address] [facility], [address], [id number], [place]. tel:[phone] [facility], [address], [place], [place], [address], tel:[phone] [facility] Cough 0 Kaley Sajidul. [address], [address], [id number], [place]. tel:[phone] Referring Provider: Angeli Roche, [address] [place] [address], [place], [address] . tel:[phone] [facility], [address], [place], [place], [id number], tel:[phone] R[facility] Cabrera COVID-19Contac t with and (suspected) exposure to other viral communicable diseases 0 Kaley Suh. [address] [place] [address] [address], [address], [id number], [place]. tel:[phone] [facility], [address], [place], [place], [address], tel:[phone] RIC Cabrera RUQ abdominal pain [address] Alva Martinez. [facility], [address], [id number], [place]. tel:[phone] Referring Provider: Kimani Key, [facility] [place], [address]. tel:[phone] Family History Family Member Type Diagnosis Age At Onset Problem (finding) Family history of Cance r, brain Father Problem (finding) Cardiovascular disease Payers Payer name Insurance type Covered libertarian ID Johnathan marisheridan(s) [facility] CI [id number] Social History Type Description Quantity Date Captured Comments Alcohol Use Details Unknown Caffeine Use Details Unknown Tobacco Use Status No Information Smoking Status No Information Sex Male Chief Complaint And Reason For Visit No Information Reason For Referral Reason For Referral No Information History Of Present Illness Encounter Date Complaint History Of Prese nt Illness No Information Functional Status Date Functional Assessmen t No Information Instructions Date Instruction Additional Infor mation No Information Assessments Type Assessment Date No Information Patient Care Teams Name Effective Dates (start - stop) Status Members No Information
--- OUTSIDE RECORDS SUMMARY | 2024-10-03 19:43 | XMS_ITS | Continuity of Care Document ---
Author Name [facility] Care Team Providers Care Plant Maintenance Engineer Name Role Phone [facility] Unavailable Unavailable Consultation Notes Results Value Date Source Office/Clinic Notes - Provider Patient: MARTHA MEYER Age: 54 years Sex: MALE : 1965 Chief Complaint Productive cough, runny nose, sore throat x4days History of Present Illness 54 year old male patient presents to the clinic with complaints of cough, congestion, runny nose, and subjective fever. He states that he has been taking Claritin and Aleve for pain. He denies any asthma, COPD or respiratory disease. Review of Systems Constitutional: Negative except HPI. EENT: Negative except HPI. Respiratory: Negative except HPI. Musculoskeletal: Negative except HPI. Physical Exam Vitals and Measurements T: 97.5 F HR: 73 RR: 18 BP: 152/90 SpO2: 96% HT: 66 in WT: 149.69 kg(Dose Calc Wt.) WT: 330 lb BMI: 53.26 kg/m2 General Appearance: No acute distress. HEENT: Normocephalic. PERRL. Normal tympanic membranes. No nasal discharge. Oral cavity and pharynx normal. Neck supple, non-tender without lymphadenopathy, masses or thyromegaly. Cardiac: Normal rate and rhythm. There is no peripheral edema, cyanosis or pallor. Lungs: Bilateral diffuse expiratory wheezing throughout lower lung corona, no shortness of breath, normal air movement in bilateral lower lobes Musculoskeletal: Normal gait. Neurological: oriented x4, awake, speech normal Skin: Skin normal color, texture and turgor with no rash present. Psychiatric: Demonstrated good judgment and reason and normal affect during examination. PHQ-2 Score: 0 (03/04/2019) - Negative Assessment/Plan _ 1. Lower resp. tract infection (Unspecified acute lower respiratory infection, J22) Ordered: [id number] Office Visit Level 3 Est Orders: azithromycin, 2 Tabs now, then 1 Tab, ORAL, DAILY, times 4 days, till gone, # 6 Tab, Indication= Bronchitis (bacterial), 0 Refill(s), Acute, Pharmacy: [facility]/pharmacy #[id number] benzonatate, = 1 Cap, ORAL, TID, X 14 Day(s), # 42 Cap, 0 Refill(s), Acute, Pharmacy: [facility]/pharmacy #[id number] Patient will follow up as needed. Patient Education Preventing Common Respiratory Infections Follow-Up Provider: NOT ON FILE DOCTOR Date: Within 7-10 days Comment: You have asthmatic bronchitis or infection the bronchial tree associated with wheezing. No signs of pneumonia today. Start the Zithromax and take it as prescribed. Drink lots fluids as the immune system requires more fluids to help fight infection. Robitussin DM 5 mL every 4 hours as cough expectorant and suppressant. Also you may wish to add Mucinex which is 600 mg of guaifenesin at 6 hours for cough. Allergies No Known Medication Allergies Problem List Active Problems Body mass index 30+ - obesity Inactive Problems No qualifying data Medications azithromycin 250 mg oral tablet, 2 Tabs now, then 1 Tab, ORAL, DAILY lisinopril metFORMIN Tessalon 200 mg oral capsule, 200 mg, 1 Cap, ORAL, TID Social History Abuse/Intent to Harm Abuse screen, adult/elderly/domestic: No signs of abuse Are you thinking of harming or killing yourself?: No Are you thinking of harming or killing anyone else?: No *Tobacco Use Screen Is there a smoker in the household? No. Over the past 30 days, what and how much have you smoked? Never (less than 100 in lifetime). 03/04/2019 [facility] Encounters Location Location Details Encounter Type Encounter Number Reason For Visit Attending Provider ADM Date DC Date Status Source [facility] [id number] Nisa Emelyn 03/04 Active [facility]
[2024-10-03 19:50] VITALS: BP 141/91; PULSE 80; RESP 14; TEMP 36.6; O2SAT 98
--- OUTSIDE RECORDS SUMMARY | 2024-10-03 20:53 | XMS_ITS | Encounter Summary ---
Author Organization [facility] Address [address] [place] [address] Phone Care Team Providers Care Actuarial Science Professor Name Role Phone Kimani Key MD Primary Care Provider [phone] Timbo Choudhury MD Unavailable [phone] Encounter Details Date Type Department Care Team (Late st Contact Info) Description 03/19/2021 Telephone [facility] Cardiology [address] [facility] Advanced Medicine 8th [place] [address] [place] [address] Joaquim Cristina MD PhD [address] [place] [address] Social History Tobacco Use Types Packs/Day Years [...] on file 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
--- OUTSIDE RECORDS SUMMARY | 2024-10-03 20:53 | XMS_ITS | Continuity of Care Document ---
Author Name [facility] Care Team Providers Care Carton Wrapper Name Role Phone [facility] Unavailable Unavailable Consultation Notes Results Value [...] (Unspecified acute lower respiratory infection, J22) Ordered: [id number] Office Visit Level 3 Est Orders: azithromycin, 2 Tabs now, then 1 Tab, ORAL, DAILY, times 4 days, till gone, # 6 Tab, Indication= Bronchitis (bacterial), 0 Refill(s), Acute, Pharmacy: [facility]/pharmacy #[id number] benzonatate, = 1 Cap, ORAL, TID, X 14 Day(s), # 42 Cap, 0 Refill(s), Acute, Pharmacy: [facility]/pharmacy #[id number] Patient will follow up as needed. Patient [...] Never (less than 100 in lifetime). 03/04/2019 [facility] Encounters Location Location Details Encounter Type Encounter Number Reason For Visit Attending Provider ADM Date DC Date Status Source [facility] [id number] Nisa Emelyn 03/[address] [facility]
--- OUTSIDE RECORDS SUMMARY | 2024-10-03 20:53 | XMS_ITS | Encounter Summary ---
Author Organization [facility] Healthcare Address [address] [place] [address] Care Team Providers Care Hospitality Services Manager Name Role Phone Kimani Key MD Primary Care Provider [phone] Timob Choudhury MD Unavailable [phone] Encounter Details Date Type Department Care Team (Late st Contact Info) Description 10/03/2024 7:00 PM LINE CREWMAN - 10/03/2024 8:34 PM [facility] Emergency [facility] Emergency Department [address] [place] [address] Discharge Disposition: Left without being seen Social History Tobacco Use Types Packs/Day Years [...] on file Legal Sex Male 12:57 AM LINE CREWMAN Gender Identity Male 02/24/2021 1:31 PM CDT Sexual Orientation Straight 02/24/2021 1: 31 PM CDT documented as of this encounter Medications at Time of Discharge aspirin (ENTERIC COATED ASPIRIN) 81 mg enteric coated tabletIndication s:prevention of thrombosis Take 1 tablet (81 mg total) by mouth daily 30 tablet 11 07/06/2019 atorvastatin (LIPITOR) 40 mg tabletIndication s:Coronary artery disease involving lyt[place] coronary artery of [place]yt[place] heart without angina pectoris TAKE 1 TABLET DAILY 90 tablet 3 03/10/2024 buPROPion (WELLBUTRIN) 100 mg tablet Take 1 tablet (100 mg total) by mouth 2 (two) times a day cholecalciferol (VITAMIN D-3) 1,000 unit Take 1 tablet/capsule (1,000 Units total) by mouth daily cyanocobalamin (Vitamin B-12) 1,000 mcg sublingual tablet Take 1 tablet (1,000 mcg total) by mouth daily furosemide (LASIX) 40 mg tablet TAKE 1 TABLET DAILY 90 tablet 3 09/28/2024 hydroCHLOROthiaz jayy (MICROZIDE) 12.5 mg capsule TAKE 1 CAPSULE EVERY MORNING 90 capsule 3 10/11/2023 Jardiance 25 mg tablet 07/01/2021 lisinopriL (PRINIVIL,ZESTRI L) 10 mg tablet Take 1 tablet (10 mg total) by mouth daily 90 tablet 2 09/29/2024 09/29/2025 metoprolol XL (TOPROL-XL) 50 mg extended release tablet Take 1 tablet (50 mg total) by mouth daily 90 tablet 08/23/2024 Mounjaro 10 mg/0.5 mL pen injector Inject 0.5 mL (10 mg total) as directed once a week 08/18/2023 multivitamin capsule Take 1 capsule by mouth daily potassium chloride ER (Klor-Con M20) 20 mEq CR tablet TAKE 1 TABLET DAILY 90 tablet 1 09/06/2024 documented as of this encounter Discharge Disposition Disposition Code Departure Means Destination Left without being seen documented in this encounter Plan of Treatment Not on file documented as of this encounter Visit Diagnoses Not on filedocumented in this encounter Care Teams Hospitality Services Manager Relationship Specialty Start Date End Date Kimani Key MD [address] [address] PCP - General 12/21/18 Timbo Choudhury MD [address] [address] Consulting Physician Cardiology 02/23/23 documented as of this encounter
--- OUTSIDE RECORDS SUMMARY | 2024-10-03 20:53 | XMS_ITS | Encounter Summary ---
Author Organization [facility] Address [address] [place] [address] [place] [address] Care Team Providers Care Community Midwife Name Role Phone Unavailable Primary Care Provider Unavailabl e Encounter Details Date Type Department Care Team (Late st Contact Info) Description 08/23/2023 Lab Requisition [facility] - DermPath Lab [address] [facility], [place] [address] Elena Wilkins DO [address] [facility] 3 [place] [address] Social History Tobacco Use Types Packs/Day Years [...] Comments DERMATOPATHOLOGY Routine 08/23/2023 9:5 7 AM LOCATOR SPECIALIST documented in this encounter Results * DERMATOPATHOLOGY (08/23/2023 9:57 AM LOCATOR SPECIALIST) Case Report Dermatopathology Report Case: [id number] Authorizing Provider: Elena Wilkins DO Collected: 08/23/2023 09:57 AM Ordering Location: [facility] DermPath Lab Received: 08/23/2023 04:29 PM Pathologist: Lilliam Peña MD Specimen: Skin, mid lower back 4 4:58 PM LOCATOR SPECIALIST DERMATOPATHOLOGY LABORATORY Final Diagnosis Specimen A. SKIN, mid lower back: COMPOUND MELANOCYTIC NEVUS (D22.5) 4 4:58 PM LOCATOR SPECIALIST DERMATOPATHOLOGY LABORATORY Clinical History A: Nevus vs Atypia 4:58 PM [facility] DERMATOPATHOLOGY LABORATORY Gross Description Specimen A: Received is one formalin filled container labeled with the patient's name and designated mid lower back. The specimen consists of a shave biopsy measuring 11x9x1 mm. Jar 0 4:58 PM [facility] DERMATOPATHOLOGY LABORATORY Microscopic Description Specimen A. SKIN, mid lower back: There are nests of melanocytes at the dermal-epidermal junction and within the dermis. 4:58 PM [facility] DERMATOPATHOLOGY LABORATORY Disclaimer An external and internal positive and negative controls are appropriate for the histochemical, immunohistochemical and immunofluorescence stain(s) in this case (if any), except where stated explicitly. The performance characteristics of the stain(s) cited in this report were developed and its performance characteristic determined by the Dermatopathology Laboratory at [facility], directed by Dr. Jen Burns. These tests need not be, and therefore are not, approved by the [place] Food and Drug Administration. The tests are used for clinical purposes. Billing Codes Specimen Charges Stain Charges 74702 1 4:58 PM [facility] DERMATOPATHOLOGY LABORATORY Embedded Images 4:58 PM [facility] DERMATOPATHOLOGY LABORATORY Pathology/Cytolo gy TISSUE SPECIMEN FROM SKIN / Unknown 08/23/2023 9:57 AM LOCATOR SPECIALIST 08/23/2023 4:29 PM LOCATOR SPECIALIST Elena Wilkins DO LAB - PATHOLOGY/C YTOLOGY ORDERABLES DERMATOPATHOLOGY LABORATORY [facility] - Department of Dermatology [address], [address] [phone] documented in this encounter Visit Diagnoses Not on filedocumented in this encounter
--- OUTSIDE RECORDS SUMMARY | 2024-10-03 20:53 | XMS_ITS | Patient Health Summary ---
Author Organization [facility] Address [address] [place] [address] Care Team Providers Care Frame Stylist Name Role Phone Unavailable Primary Care Provider Unavailabl e Note from [facility],non-owned Affiliates and Associated Physician Practices is amultiple site organization consisting of ambulatory clinics and hospital sitesin [place], [place], [place] and [place]. This disclosure is being madepursuant to the Care Everywhere program and may not contain all information available regarding this patient. Last updated 18.[facility] Social History Tobacco Use Types Packs/Day Years [...] is included. Case Report Dermatopathology Report Case: [id number] Authorizing Provider: Elena Wilkins DO Collected: 03/07/2024 10:11 AM Ordering Location: [facility] - Received: 03/07/2024 04:27 PM [...] characteristic determined by the Dermatopathology Laboratory at [facility], directed by Dr. Jen Burns. These tests need not be, and therefore are not, approved by the [place] Food and Drug Administration. The tests are used for clinical purposes. Billing Codes Specimen Charges Stain Charges 45692 1 3:16 PM CDT DERMATOPATHOLOGY LABORATORY Embedded Images 3:16 PM CDT DERMATOPATHOLOGY LABORATORY Pathology/Cytolo gy TISSUE SPECIMEN FROM SKIN / Unknown 03/07/2024 10:11 AM CDT 03/07/2024 4:27 PM CDT Elena Wilkins DO LAB - PATHOLOGY/C YTOLOGY ORDERABLES DERMATOPATHOLOGY LABORATORY [facility] - Department of Dermatology [address], [address] [phone]
--- OUTSIDE RECORDS SUMMARY | 2024-10-03 20:53 | XMS_ITS | Referral Summary ---
Author Organization [facility] [address] Address [address] [place] [address] Care Team Providers Care Employment Recruiter Name Role Phone Kimani Key MD Primary Care Provider [phone] Timbo Choudhury MD Unavailable [phone] Encounters Date Type Department Care Team Description 10/03/2024 7:00 PM GUEST HOUSE MANAGER - 10/03/2024 8:34 PM [facility] Emergency [facility] Emergency Department [address] [place] [address] Discharge Disposition: Left without being seen 09/29/2024 4:00 PM GUEST HOUSE MANAGER Office Visit [facility] Medical Group Cardiology at [address] [place] [address] Timbo Choudhury MD Coronary artery disease involving [place] coronary artery of [place] heart without angina pectoris (Primary Dx); Presence [...] 40 mg tabletIndicati ons:Coronary artery disease involving [place] coronary artery of [place] heart without angina pectoris TAKE 1 TABLET [...] artery 04/14/2021 Coronary artery disease invo lving [place] coronary artery of [place] heart without angina pectoris 01/16/2020 Social History [...] on file Legal Sex Male 12:57 AM GUEST HOUSE MANAGER Gender Identity Male 02/24/2021 1:31 PM CDT Sexual Orientation Straight 02/24/2021 1: 31 PM CDT Last Filed Vital Signs Vital Sign Reading Time Taken Comments Blood Pressure 106/70 09/29/2024 3:58 PM GUEST HOUSE MANAGER Pulse 69 09/29/2024 3:58 PM GUEST HOUSE MANAGER Temperature 36.8 C (98.2 F) 03/24/2021 12:24 PM CDT Respiratory Rate 15 03/24/2021 5:15 PM CDT Oxygen Saturation 96% 09/29/2024 3:58 PM GUEST HOUSE MANAGER Inhaled Oxygen Concentration - - Weight 111.1 kg (245 lb) 09/29/2024 3:58 PM GUEST HOUSE MANAGER Height 167.6 cm (5' 6 ) 09/29/2024 3:58 PM GUEST HOUSE MANAGER Body Mass Index 39.54 09/29/2024 3:58 PM GUEST HOUSE MANAGER Plan of Treatment Not on file Medical Devices Implanted Type Area Quarter Inspector Device Identifier Shelf Expiration Date Model / Serial / Lot Physician Referral Network (PRN) Scientific Cookie [id number] Synergy Xd Monorail 3mm 16mm 144cm Delivery System 1 Access Port - [id number] - [id number] Implanted:Qty: 1 on 03/24/2021 by Joaquim Cristina MD PhD at [facility] Stent [employer] Cookie 11/06/2022 [id number] / [id number] / [id number] [employer] Cookie [id number] Synergy Xd Monorail 2.5mm 16mm 144cm Delivery System 1 Access - [id number] Implanted:Qty: 1 on 03/24/2021 by Joaquim Cristina MD PhD at [facility] Stent Left: Coronary [employer] Cookie 12/30/2022 [id number] / / [id number] Daig Cookie/[employer] [id number] Angio-Seal Evolution 8fr .038in Guidewire Bypass Tube Suture - [id number] Implanted:Qty: 1 on 03/24/2021 by Joaquim Cristina MD PhD at [facility] Stent Right: Femoral [employer] Cookie 11/13/2021 [id number] / / [id number] Procedures Procedure Name Priority Date/Time Associated Diagnosis Comments POCT LIPID PANEL Routine 03/09/2024 8:25 AM CDT Lipid screening EGFR STAT 03/24/2021 5:20 PM CDT from Last 3 Months or Most Recently Relevant to Health Maintenance Results * POCT lipid panel (03/09/2024 8:25 AM CDT) Pathologist [facility] Cholesterol, POC 129 mg/dL HDL, POC 36 mg/dL Triglycerides, POC 210 mg/dL LDL Cholesterol POC 51 mg/dL Chol/HDL Ratio, POC 1.4 Non-HDL Cholesterol, POC 93 mg/dL Cholesterol Total, POC 129 mg/dL Capillary blood 03/09/2024 8 :25 AM CDT Timbo Choudhury MD POINT OF CARE TEST ORDER YVAN Edited Result - Final * eGFR (03/24/2021 5:20 PM CDT) Pathologist [facility] eGFR >90 90 - 130 mL/min/1.7 3 m2 [facility] Comment: Interpretive Data Reference Interval Normal [...] 03/24/2021 5:31 PM CDT us Sandi Tam QUILL CLEANER LAB BLOOD ORDERABLES Final Re sult [facility] One [facility] Department [place] [address] from Last 3 Months or Most Recently Relevant to Health Maintenance Insurance [facility] CHOICE PLUS [facility] HMO/PPO Address: [address] [address] [place] [address] [facility] ACCESS CHOICE UHC CHOICE PLUS [facility] HMO/PPO Address: [address] [address] [place] [address] UHC CHOICE PLUS [facility] HMO/PPO Address: [address] [address] [place] [address] [facility] ACCESS CHOICE Advance Directives For more information, please contact: [phone] * Full Code (Latest Code Status on File) Date Activated Date Inactivated Comments 03/24/2021 3:40 PM 03/24/2021 10:48 PM Healthcare Agents on File Name Relationship Healthcare Agent Relationshi p Communication Costa Meyer Spouse Health Care Agent [email or web address] Care Teams Employment Recruiter Relationship Specialty Start Date End Date Kimani Key MD [address] [address] PCP - General 12/21/18 Timbo Choudhury MD [address] [address] Consulting Physician Cardiology 02/23/23
--- OUTSIDE RECORDS SUMMARY | 2024-10-03 20:53 | XMS_ITS | Clinical Summary ---
Author Organization [facility] [address] Address [address] [place] [address] Care Team Providers Care Dental Appliance Repairer Name Role Phone Kimani Key MD Primary Care Provider [phone] Timbo Choudhury MD Unavailable [phone] Allergies Active Allergy Reactions Criticality Noted Date [...] 40 mg tabletIndicati ons:Coronary artery disease involving [place] coronary artery of [place] heart without angina pectoris TAKE 1 TABLET [...] artery 04/14/2021 Coronary artery disease invo lving [place] coronary artery of [place] heart without angina pectoris 01/16/2020 Encounters Date Type Department Care Team Description 10/03/2024 7:00 PM VENEER JOINER - 10/03/2024 8:34 PM VENEER JOINER Emergency [facility] Emergency Department [address] [place] [address] Discharge Disposition: Left without being seen 09/29/2024 4:00 PM VENEER JOINER Office Visit [facility] Medical Group Cardiology at [address] [place] [address] Timbo Choudhury MD Coronary artery disease involving [place] coronary artery of [place] heart without angina pectoris (Primary Dx); Presence [...] on file Legal Sex Male 12:57 AM VENEER JOINER Gender Identity Male 02/24/2021 1:31 PM CDT Sexual Orientation Straight 02/24/2021 1: 31 PM CDT Obstetrics History Last Filed Vital Signs Vital Sign Reading Time Taken Comments Blood Pressure 106/70 09/29/2024 3:58 PM VENEER JOINER Pulse 69 09/29/2024 3:58 PM VENEER JOINER Temperature 36.8 C (98.2 F) 03/24/2021 12:24 PM CDT Respiratory Rate 15 03/24/2021 5:15 PM CDT Oxygen Saturation 96% 09/29/2024 3:58 PM VENEER JOINER Inhaled Oxygen Concentration - - Weight 111.1 kg (245 lb) 09/29/2024 3:58 PM VENEER JOINER Height 167.6 cm (5' 6 ) 09/29/2024 3:58 PM VENEER JOINER Body Mass Index 39.54 09/29/2024 3:58 PM VENEER JOINER Plan of Treatment Health Maintenance Due Date [...] history exists Medical Devices Implanted Type Area Welding Robot Operator Device Identifier Shelf Expiration Date Model / Serial / Lot [employer] Cookie [id number] Synergy Xd Monorail 3mm 16mm 144cm Delivery System 1 Access Port - [id number] - [id number] Implanted:Qty: 1 on 03/24/2021 by Joaquim Cristina MD PhD at [facility] Stent [employer] Cookie 11/06/2022 [id number] / [id number] / [id number] [employer] Cookie [id number] Synergy Xd Monorail 2.5mm 16mm 144cm Delivery System 1 Access - [id number] Implanted:Qty: 1 on 03/24/2021 by Joaquim Cristina MD PhD at [facility] Stent Left: Coronary [employer] Cookie 12/30/2022 [id number] / / [id number] [employer] [id number] Angio-Seal Evolution 8fr .038in Guidewire Bypass Tube Suture - [id number] Implanted:Qty: 1 on 03/24/2021 by Joaquim Cristina MD PhD at [facility] Stent Right: Femoral [employer] Cookie 11/13/2021 [id number] / / [id number] Procedures Procedure Name Priority Date/Time Associated Diagnosis [...] 90 - 130 mL/min/1.7 3 m2 [facility] Comment: Interpretive Data Reference Interval Normal >/= [...] 03/24/2021 5:31 PM CDT us Sandi Tam RESIDENT SERVICES COORDINATOR LAB BLOOD ORDERABLES Final Re sult [facility] One [facility] [place] [address] from Last 3 Months or Most Recently Relevant to Health Maintenance Insurance [facility] CHOICE PLUS [facility] ACCESS CHOICE [employer] ACCESS CHOICE Advance Directives For more information, please contact: [phone] * Full Code (Latest Code Status on File) Date Activated Date Inactivated Comments 03/24/2021 3:40 PM 03/24/2021 10:48 PM Healthcare Agents on File Name Relationship Healthcare Agent Relationshi p Communication Costa Meyer Spouse Health Care Agent [email or web address] Care Teams Dental Appliance Repairer Relationship Specialty Start Date End Date Kimani Key MD [address] [address] PCP - General 12/21/18 Timbo Choudhury MD [address] [facility] [address] [place] [address] Consulting Physician Cardiology 02/23/23
--- OUTSIDE RECORDS SUMMARY | 2024-10-03 20:53 | XMS_ITS | Referral Summary ---
Author Organization [facility] Address [address] [facility] [place] [address] Care Team Providers Care Boring Machine Set Up Operator Jig Name Role Phone Unavailable Primary Care Provider Unavailabl e Source Comments [facility],non-owned Affiliates and Associated Physician Practices is amultiple site organization consisting of ambulatory clinics and hospital sitesin [place], [place] and [place]. This disclosure is being madepursuant to the Care Everywhere program and may not contain all information available regarding this patient. Last updated 18.[facility] Social History Tobacco Use Types Packs/Day Years Used Date Smoking Tobacco: Never Assessed Sex and Gender Information Value Date Recorded Sex Assigned at Not on file Gender Identity Not on file Sexual Orientation Not on file Plan of Treatment Not on file
--- OUTSIDE RECORDS SUMMARY | 2024-10-03 20:53 | XMS_ITS | Clinical Summary ---
Author Organization [facility] Address [address] [place] [address] Care Team Providers Care Product Developer Name Role Phone Unavailable Primary Care Provider Unavailabl e Source Comments [facility],non-owned Affiliates and Associated Physician Practices is amultiple site organization consisting of ambulatory clinics and hospital sitesin [place], [place], [place]. This disclosure is being madepursuant to the Care Everywhere program and may not contain all information available regarding this patient. Last updated 18.[facility] My Dentist Social History Tobacco Use Types Packs/Day Years [...]
--- OUTSIDE RECORDS SUMMARY | 2024-10-03 20:54 | XMS_ITS | Encounter Summary ---
Author Organization [facility] Address [address] [place] [address] [place] [address] Care Team Providers Care Embossing Machine Operator Helper Name Role Phone Unavailable Primary Care Provider Unavailabl e Encounter Details Date Type Department Care Team (Late st Contact Info) Description 09/20/2019 Lab Requisition [facility] DermPath Lab [address] [facility] [place] [place] [place] [address] Elena Wilkins DO [address] [facility] 3 [place] [address] Social History Tobacco Use Types Packs/Day Years [...] Comments DERMATOPATHOLOGY Routine 09/19/2019 12:0 0 AM MONOTYPE MECHANIC documented in this encounter Results * DERMATOPATHOLOGY (09/19/2019 12:00 AM MONOTYPE MECHANIC) Case Report Dermatopathology Report Case: [id number] Authorizing Provider: Elena Wilkins DO Collected: 09/19/2019 12:00 AM Ordering Location: [facility] DermPath Lab Received: 09/20/2019 06:19 AM Pathologist: Uyen Burns MD Specimen: Skin, left neck 0 12:42 PM MONOTYPE MECHANIC DERMATOPATHOLOGY LABORATORY Addendum 1 At the request [...] final diagnosis remains unchanged. 0 12:42 PM MONOTYPE MECHANIC DERMATOPATHOLOGY LABORATORY Addendum electronically signed by Uyen Burns MD on 09/27/2019 at 12:42 PM Final Diagnosis Specimen A. 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 The specimen consists of a [id number] mm piece of skin. The specimen is serially sectioned and a parts sales representative section is submitted in cassette 1. Jar 1. 0 12:42 PM [facility] DERMATOPATHOLOGY LABORATORY Microscopic Description Specimen A. [...] of the remaining lesion. 0 12:42 PM [facility] DERMATOPATHOLOGY LABORATORY Disclaimer An external and internal positive and negative controls are appropriate for the histochemical, immunohistochemical and immunofluorescence stain(s) in this case (if any), except where stated explicitly. The performance characteristics of the stain(s) cited in this report were developed and its performance characteristic determined by the Dermatopathology Laboratory at [facility], directed by Dr. Jen Burns. These tests need not be, and therefore are not, approved by the [place] Food and Drug Administration. The tests are used for clinical purposes. Billing Codes Specimen Charges Stain Charges 02625 1 0 12:42 PM [facility] DERMATOPATHOLOGY LABORATORY Embedded Images 0 12:42 PM [facility] DERMATOPATHOLOGY LABORATORY Pathology/Cytolog y TISSUE SPECIMEN FROM SKIN / Unknown 09/19/2019 09/20/2019 6:19 AM MONOTYPE MECHANIC Elena Wilkins DO LAB - PATHOLOGY/C YTOLOGY ORDERABLES DERMATOPATHOLOGY LABORATORY [facility] - Department of Dermatology [address] [facility] [place] [address] [place] [address], [facility] [phone] documented in this encounter Visit Diagnoses Not on filedocumented in this encounter
--- OUTSIDE RECORDS SUMMARY | 2024-10-03 20:54 | XMS_ITS | Continuity of Care Document ---
Author Organization [facility] Address [address] [place] [address] Phone Care Team Providers Care [employer] Officer Name Role Phone Kaley RICHARDSON, Angeli Unavailable [...] Diagnoses Date Provider Providers Copied on Encounter [facility], [address], [place], [place], [id number], tel:[phone] South No Information 0 Kaley Jeremiahdul. [address] [facility], [address], [id number], [place]. tel:[phone] [facility], [address], [place], [place], [id number], tel:[phone] [facility] Cough 0 Kaley Sajidul. [address], [address], [id number], [place]. tel:[phone] Referring Provider: Angeli Roche, [address] [place] [address], [place], [address] . tel:[phone] [facility], [address], [place], [place], [address], tel:[phone] RIC Cabrera COVID-19Contac t with and (suspected) exposure to other viral communicable diseases 0 Kaley Suh. [address] [place] [address] [address], [address], [id number], [place]. tel:[phone] [facility], [address], [place], [place], [address], tel:[phone] RIC Cabrera RUQ abdominal pain 201 8 Alva Martinez. [facility], [address], [id number], [place]. tel:[phone] Referring Provider: Kimani Key, [facility] [place], [address]. tel:[phone] Family History Family Member Type Diagnosis Age At Onset Problem (finding) Family history of Cance r, brain Father Problem (finding) Cardiovascular disease Payers Payer name Insurance type Covered republican ID Johnathan marisheridan(s) [facility] CI [id number] Social History Type Description Quantity Date Captured [...]
--- OUTSIDE RECORDS SUMMARY | 2024-10-03 20:54 | XMS_ITS | Encounter Summary ---
Author Organization [facility] Address [address] [place] [address] [place] [address] Care Team Providers Care Personal Development Educator Name Role Phone Unavailable Primary Care Provider Unavailabl e Encounter Details Date Type Department Care Team (Late st Contact Info) Description 03/07/2024 Lab Requisition [facility] - DermPath Lab [address] [place] [address] Elena Wilkins DO [address] [place] [address] Social History Tobacco Use Types Packs/Day Years [...] AM CDT) Case Report Dermatopathology Report Case: [id number] Authorizing Provider: Elena Wilkins DO Collected: 03/07/2024 10:11 AM Ordering Location: [facility] - Received: 03/07/2024 04:27 PM [...] characteristic determined by the Dermatopathology Laboratory at [facility], directed by Dr. Jen Burns. These tests need not be, and therefore are not, approved by the [place] Food and Drug Administration. The tests are used for clinical purposes. Billing Codes Specimen Charges Stain Charges 62941 1 3:16 PM CDT DERMATOPATHOLOGY LABORATORY Embedded Images 3:16 PM CDT DERMATOPATHOLOGY LABORATORY Pathology/Cytolo gy TISSUE SPECIMEN FROM SKIN / Unknown 03/07/2024 10:11 AM CDT 03/07/2024 4:27 PM CDT Elena Wilkins DO LAB - PATHOLOGY/C YTOLOGY ORDERABLES DERMATOPATHOLOGY LABORATORY [facility] - Department of Dermatology [address], [address] [phone] documented in this encounter Visit Diagnoses Not on filedocumented in this encounter
--- NOTE | 2024-10-03 20:58 | ECG_ITS ---
Test Date: 2024-10-03 21:09:32 Measurements Intervals Rifle Rate: 68 P: 2 WI: 153 QRS: -18 QRSD: 88 T: 13 QT: 398 QTc: 424 Interpretive Statements SINUS RHYTHM POSSIBLE ANTERIOR MYOCARDIAL INFARCTION , PROBABLY OLD BASELINE ARTIFACT- I, II, AVR ABNORMAL ECG No previous ECG available for comparison Electronically Signed On 10-04-2024 07:04:33 STIFF LEG OPERATOR by Max Garcia D.O.
--- NOTE | 2024-10-03 21:04 | ED.GENADULT ---
HPI - General Adult General Chief complaint: Nausea/Vomiting/Diarrhea Stated complaint: nausea, diarrhea, feeling lightheaded Time Seen by Provider: 10/03/24 20:40 History of Present Illness HPI narrative: This is a 59-year-old male presenting with 3 days of diarrhea. Patient says he has feeling well, he has had nausea but no vomiting. Denies any fevers chest pain difficulty breathing or urinary symptoms. His is sick with similar symptoms. He has been getting dizzy when he stands up. He called [facility] and they recommended him to come to the ER. Related Data Home Medications ?Medication ?Instructions ?Recorded ?Confirmed ?Last Taken ?Type aspirin 81 mg tablet,delayed 81 mg PO DAILY 07/10/19 01/19/24 03/12/21 History release (Adult Aspirin Regimen) furosemide 40 mg tablet 40 mg PO DAILY 03/11/21 01/19/24 03/12/21 History multivitamin 1 tablet PO DAILY 04/25/21 01/19/24 Unknown History atorvastatin 40 mg tablet 40 mg PO DAILY 07/01/21 01/19/24 Unknown History cholecalciferol (vitamin D3) 25 1,000 unit PO DAILY 07/01/21 01/19/24 Unknown History mcg (1,000 unit) tablet cyanocobalamin (vitamin B-12) 1,000 mcg PO DAILY 07/01/21 01/19/24 Unknown History 1,000 mcg capsule potassium chloride 20 mEq oral 20 meq PO DAILY 07/01/21 01/19/24 Unknown History packet fluticasone propionate 50 1 spray intranasal BID 01/05/23 01/19/24 Unknown History mcg/actuation nasal spray,suspension bupropion HCl 100 mg tablet,12 hr 100 mg PO DAILY 07/20/23 01/19/24 Unknown History sustained-release (Wellbutrin SR) Allergies Allergy/AdvReac Type Severity Reaction Status Date / Time topiramate (From Topamax) AdvReac Headache Verified 10/03/24 19:42 [facility] Past Medical History Medical History (Updated 10/03/24 @ 23:37 by Darion Esquivel MD) Adult situational stress disorder (~2021) Morbid obesity with BMI of 40.0-44.9, adult Colon cancer screening normal colonoscopy age 52 with recheck in 10 years. Acute bronchitis COVID (04/13/23) 3rd episode tested positive 04/14/2023 Morbid obesity with BMI of 45.0-49.9, adult COVID-19 (07/22/22) 2nd episode, vaccinated, tested positive 07/23/2022. Candidiasis of anus Chronic bilateral low back pain without sciatica COVID-19 (03/13/22) symptoms started evening 03/13/2022. Requested positive 03/14/2022. Cannot take Paxlovid with Plavix. Melanoma in situ (~07/2021) patient reports 0.5 cm early melanoma left maxillary area of the face excised in August 2021 with margins Grade I diastolic dysfunction (02/07/21) grade 1 diastolic dysfunction on echocardiogram 02/07/2021 with ejection fraction 55-60% Vitamin B12 deficiency anemia vitamin B12 1627 with hemoglobin 15.0 on 07/01/2021. Level normal at 1686 With hemoglobin 16.1 on 03/09/2022. Level normal at 1645 with hemoglobin 16.5 on 07/21/2022. Level normal at 1072 with hemoglobin 15.8 on 07/28/2023. Flash pulmonary edema Hypertensive emergency Acute cardiogenic pulmonary edema Fever Cough Shortness of breath Biliary colic Right carpal tunnel syndrome ESTHER on CPAP APAP With fullface mask Seasonal allergic rhinitis Encounter for prostate cancer screening PSA 0.5 on 07/01/2021. PSA normal at 0.5 on 03/09/2022. PSA 0.5 on 07/28/2023. 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 Total cholesterol 155, triglycerides 234, HDL 37 and LDL 79 on 03/09/2022. Total cholesterol 161 with triglycerides elevated at 328, HDL of 39 and LDL 70 on 07/21/2022. Total cholesterol 142, triglycerides 224, HDL 43, LDL 63 on 07/28/2023. Cholesterol 141, triglycerides 163, HDL 43, LDL 70 01/07/2024. Controlled diabetes mellitus, without long-term current use of insulin (07/05/18) Glucose 130 with hemoglobin A1c 5.6 on 07/02/2018. glucose 111 with hemoglobin A1c 5.7 on 07/01/2021. Glucose 102 With hemoglobin A1c 5.7 and microalbumin ratio less than 24 on 03/09/2022. Glucose 113 with hemoglobin A1c 5.8 on 07/21/2022. Fasting glucose 99 with hemoglobin A1c 5.4 on 07/28/2023. Glucose 98 with hemoglobin A1c 5.0 on 01/07/2024. Surgical History Surgical History History of cholecystectomy (~2019) History of carpal tunnel release Hx of appendectomy Family History Family History Daughter Depression Father Family history of coronary artery disease Hypertension Acute myocardial infarction Cerebrovascular accident Social History Social History Smoking status: Never smoker Alcohol intake: current Drinks per week: 7 Substance use: never Substance use type: does not use Lack of Transportation: No Lack of Food: Never True Current Housing: I Have Housing Concerned About Future Housing: No Difficulty Paying Gas/Electric Bills: No Difficulty Paying for Meds: No Currently Unemployed: No Education: Bachelor's Degree Difficulty w/ Childcare or Family Care: No Gender identity (if verbalized by the patient): Male Spiritual care concerns: No Exam Narrative: APPEARANCE: No apparent distress. Head: atraumatic. EYES: EOMI, NOSE: Atraumatic NECK: Trachea midline RESPIRATORY: No increased rate of breathing clear to auscultation CARDIOVASCULAR: RRR, no peripheral edema ABDOMINAL: Non-distended soft nontender MUSCULOSKELETAl: No obvious deformities NEURO: Alert. Moving 4/4 extremities SKIN:: Warm, dry. Normal color PSYCHIATRIC: Normal affect Course Vital Signs Vital signs: Vital Signs Temperature 97.9 F 10/03/24 19:50 Pulse Rate 80 10/03/24 19:50 Respiratory Rate 14 10/03/24 19:50 Blood Pressure 141/91 H 10/03/24 19:50 Pulse Oximetry 98 10/03/24 19:50 Temperature 97.9 F 10/03/24 19:50 Pulse Rate 69 10/03/24 21:05 Respiratory Rate 17 10/03/24 21:05 Blood Pressure 128/88 10/03/24 21:05 Pulse Oximetry 95 10/03/24 21:05 Medical Decision Making [facility] Narrative Medical decision making narrative: -Course: This is 59 year old male presenting with 3 days of diarrhea. He is not dizzy lightheaded when he stands. Patient given fluid rehydration with improvement. Patient has a slight PAT which is consistent with his presentation.. Abdominal exam is benign. Patient is now tolerating p.o.. He will be discharged with Zofran. Given return precautions -DDX includes but is not limited to: Gastroenteritis viral syndrome flu COVID sepsis Vital Signs Vital Signs: Vital Signs Temperature 97.9 F 10/03/24 19:50 Pulse Rate 80 10/03/24 19:50 Respiratory Rate 14 10/03/24 19:50 Blood Pressure 141/91 H 10/03/24 19:50 Pulse Oximetry 98 10/03/24 19:50 Temperature 97.9 F 10/03/24 19:50 Pulse Rate 69 10/03/24 21:05 Respiratory Rate 17 10/03/24 21:05 Blood Pressure 128/88 10/03/24 21:05 Pulse Oximetry 95 10/03/24 21:05 Lab Data 10/03/24 21:30 10/03/24 21:30 Labs: Lab Results 10/03/24 Range/Units 21:30 WBC 13.8 H (4.5-10.0) K/mm3 RBC 5.45 (4.6-6.20) M/mm3 Hgb 17.4 (14.0-18.0) g/dL Hct 50.4 (42.0-52.0) % MCV 92.5 (80-100) fl MCH 31.9 (26-34) pg MCHC 34.5 (32-36) g/dl RDW 13.2 (11.5-14.5) % Plt Count 179 (150-375) k/mm3 MPV 10.1 (7.4-10.4) fl Immature Gran % (Auto) 0.3 (0-0.5) % Neut % (Auto) 73.7 H (45.5-73.1) % Lymph % (Auto) 19.8 (18.3-44.2) % [place] % (Auto) 5.8 (2.6-8.5) % Eos % (Auto) 0.3 (0-4.4) % Baso % (Auto) 0.1 L (0.2-1.2) % Lymph # (Auto) 2.73 (0.9-3.2) K/mm3 [place] # (Auto) 0.8 H (0.1-0.6) K/mm3 Eos # (Auto) 0.0 (0-0.3) K/mm3 Baso # (Auto) 0.0 (0.0-0.1) K/mm3 Abs Immat Gran (auto) 0.04 H (0.00-0.031) K/mm3 Absolute Neuts (auto) 10.1 H (1.3-6.7) K/mm3 Absolute Nucleated RBC 0.000 (0.0-0.012) K/mm3 Nucleated RBC % 0.0 (0.0-0.2) % Sodium 138 (137-145) mmol/L Potassium 3.4 (3.4-5.0) mmol/L Chloride 96 L (98-107) mmol/L Carbon Dioxide 30 (22-30) mmol/L Anion Gap 12 (4-12) mmol/L BUN 16 (9-20) mg/dL Creatinine 1.38 H (0.7-1.3) mg/dL Estim Creat Clear Calc 60 ml/min Estimated GFR 53 L (59 - ) Glucose 102 (65-110) mg/dL Calcium 9.1 (8.4-10.2) mg/dL Total Bilirubin 0.8 (0.2-1.3) mg/dL AST 19 (17-59) U/L ALT 23 (6-50) U/L Alkaline Phosphatase 56 (38-126) U/L Total Protein 7.0 (6.3-8.2) g/dL Albumin 4.5 (3.5-5.1) g/dL Lipase 58 (23-300) U/L Urine Color Yellow (Yellow) Urine Appearance Clear (Clear) Urine pH 5.5 (5.0-9.0) Ur Specific [place] 1.037 H (1.001-1.035) Urine Protein Negative (Negative) mg/dL Urine Glucose (UA) 3+ H (Negative) mg/dL Urine Ketones Trace H (Negative) mg/dL Ur Blood (Man) Negative (Negative) Urine Nitrate Negative (Negative) Urine Bilirubin Negative (Negative) Urine Urobilinogen 0.2 (<2.0) mg/dL Leukocyte Esterase Rfl Negative (Negative) JASBIR/UL Influenza A (RT-PCR) Negative (Negative) Influenza B (RT-PCR) Negative (Negative) RSV (RT-PCR) Negative (Negative) SARS-CoV-2 RNA (RT-PCR) Negative (Negative) Discharge Plan Discharge Clinical Impression: Nausea, Diarrhea, Acute kidney injury Patient Disposition: Home, Self-Care Condition: Stable Instructions: Antibiotic Form, Dehydration (ED), Gastroenteritis (ED) Additional Instructions: Please make sure you are drinking plenty of fluids. Use Zofran for nausea. Please return to ED if you develop fevers, severe abdominal pain or intractable nausea and vomiting. Patient Language: Liberian Prescriptions: New ondansetron 4 mg tablet,disintegrating 4 mg PO Q8H PRN (Reason: nausea and vomiting) Qty: 30 0RF No Action cholecalciferol (vitamin D3) 25 mcg (1,000 unit) tablet 1,000 unit PO DAILY atorvastatin 40 mg tablet 40 mg PO DAILY cyanocobalamin (vitamin B-12) 1,000 mcg capsule 1,000 mcg PO DAILY potassium chloride 20 mEq packet 20 meq PO DAILY Patient Comments: fluticasone propionate 50 mcg/actuation spray,suspension 1 spray intranasal BID Rx Instructions: administer into each nostril Mounjaro 15 mg/0.5 mL pen injector 15 mg subcut WEEKLY Qty: 6 3RF clotrimazole-betamethasone 1-0.05 % cream 1 applic topical BID 14 Days Qty: 45 1RF Rx Instructions: apply to rash twice daily for up to 2 weeks at a time as needed for yeast bupropion HCl [Wellbutrin SR] 100 mg tablet sustained-release 12 hr 100 mg PO DAILY furosemide 40 mg tablet 40 mg PO DAILY multivitamin Tablet 1 tablet PO DAILY famotidine 20 mg tablet 20 mg PO DAILY Qty: 30 0RF dicyclomine 20 mg tablet 20 mg PO TID Qty: 30 0RF ondansetron 4 mg tablet,disintegrating 4 mg PO Q8H PRN (Reason: nausea and vomiting) Qty: 10 0RF aspirin [Adult Aspirin Regimen] 81 mg tablet,delayed release (DR/EC) 81 mg PO DAILY hydrochlorothiazide 12.5 mg capsule 12.5 mg PO QAM 30 Days Qty: 30 0RF cyclobenzaprine 10 mg tablet 10 mg PO TID Qty: 30 0RF (DME) OneTouch Verio test strips Strip See Rx Instructions .Route Qty: 300 3RF Rx Instructions: use to test glucose 3 times a day lisinopril 40 mg tablet 40 mg PO DAILY Qty: 90 3RF metoprolol succinate 50 mg tablet extended release 24 hr 50 mg PO DAILY Qty: 90 3RF Rx Instructions: To the pharmacist: why are you requesting another prescription when this was done for 1 year of refills in July of 2022? please stop wasting my time Jardiance 25 mg tablet 25 mg PO DAILY Qty: 90 3RF alprazolam 0.25 mg tablet 0.25 mg PO QHS PRN (Reason: anxiety) Qty: 30 1RF Follow-up/Referrals: Kimani Key MD [Primary Care Provider] -
[2024-10-03 21:05] VITALS: BP 128/88; PULSE 69; RESP 17; O2SAT 95
[2024-10-03] MEDS: SODIUM CHLORIDE 0.9% IV 2,000 ML 999 ML IV CONT (21:29)
[2024-10-03 21:39] LABS: Basophils Percent Auto 0.1 % (0.2-1.2); Eosinophils Percent Auto 0.3 % (0-4.4); Hematocrit 50.4 % (42.0-52.0); Hemoglobin 17.4 g/dL (14.0-18.0); Immature Granulocyte Absolute 0.04 K/mm3 (0.00-0.031); Immature Granulocyte Percent A 0.3 % (0-0.5); Lymphocytes Absolute Auto 2.73 K/mm3 (0.9-3.2); Lymphocytes Percent Auto 19.8 % (18.3-44.2); Mean Corpuscular HGB Conc 34.5 g/dl (32-36); Mean Corpuscular Hemoglobin 31.9 pg (26-34); Mean Corpuscular Volume 92.5 fl (80-100); Mean Platelet Volume 10.1 fl (7.4-10.4); Monocytes Absolute Auto 0.8 K/mm3 (0.1-0.6); Monocytes Percent Auto 5.8 % (2.6-8.5); Neutrophils Absolute Auto 10.1 K/mm3 (1.3-6.7); Neutrophils Percent Auto 73.7 % (45.5-73.1); Platelet Count Result 179 k/mm3 (150-375); Red Blood Count 5.45 M/mm3 (4.6-6.20); Red Cell Distribution Width 13.2 % (11.5-14.5); White Blood Count 13.8 K/mm3 (4.5-10.0)
[2024-10-03 21:46] LABS: Add Urine Microscopic? NO; Appearance Urine Clear (Clear); Bilirubin Urine Negative (Negative); Blood Urine Negative (Negative); Color Urine Yellow (Yellow); Glucose Urine UA 3+ mg/dL (Negative); Ketones Urine Trace mg/dL (Negative); Leukocyte Esterase Ur Negative LEU/UL (Negative); Nitrate Urine Negative (Negative); Protein Urine Negative (Negative); Specific Grav Ur 1.037 (1.001-1.035); Urobilinogen Urine 0.2 mg/dL (<2.0); pH Urine 5.5 (5.0-9.0)
[2024-10-03 21:48] LABS: Alanine Aminotransferase 23 U/L (6-50); Albumin Level 4.5 g/dL (3.5-5.1); Alkaline Phosphatase 56 U/L (38-126); Anion Gap 12 mmol/L (4-12); Aspartate Amino Transferase 19 U/L (17-59); Bilirubin,Total 0.8 mg/dL (0.2-1.3); Blood Urea Nitrogen 16 mg/dL (9-20); Calcium 9.1 mg/dL (8.4-10.2); Carbon Dioxide 30 mmol/L (22-30); Chloride 96 mmol/L (98-107); Estimated CRCL calculation 60 ml/min; Estimated Glomerular Filt Rate 53; Glucose 102 mg/dL (65-110); Lipase 58 U/L (23-300); Potassium 3.4 mmol/L (3.4-5.0); Sodium 138 mmol/L (137-145)
[2024-10-03 22:17] LABS: Influenza A QL RT-PCR Negative (Negative); Influenza B QL RT-PCR Negative (Negative); RSV RNA, RT-PCR Negative (Negative); SARS-CoV-2 RNA PCR Negative (Negative)
[2024-10-03 23:52] VITALS: BP 124/74; PULSE 74; RESP 14; O2SAT 100
== END 2024-10-03 23:54 | disposition home or self-care (01) ==
PROVIDERS: Emergency Provider Emergency Medicine; PCP Family Medicine
DX: R11.0 Nausea (principal); R19.7 Diarrhea, unspecified; N17.9 Acute kidney failure, unspecified; Z20.822 Contact with and (suspected) exposure to COVID-19; G47.30 Sleep apnea, unspecified; I25.10 Atherosclerotic heart disease of native coronary artery without angina pectoris; E78.5 Hyperlipidemia, unspecified; E11.9 Type 2 diabetes mellitus without complications; Z79.4 Long term (current) use of insulin; I10 Essential (primary) hypertension; R94.31 Abnormal electrocardiogram [ECG] [EKG]
CPT/HCPCS: 36415; 71045; 80053; 81003; 83690; 85025; 87637; 93005; 96360; 96361; 99284; J7030